=== PATIENT | male | born 1965 | race Caucasian/White ===

== ENCOUNTER → 2018-12-21 14:01 | Outpatient (CLI) | payer OTHER, SELFPAY | PROVIDERS: Visit Provider Family Medicine | DX: H91.22 Sudden idiopathic hearing loss, left ear (principal); H90.5 Unspecified sensorineural hearing loss; H81.392 Other peripheral vertigo, left ear; H93.12 Tinnitus, left ear | CPT/HCPCS: 99203; 99212 ==

== ENCOUNTER → 2018-12-27 14:57 | Outpatient (CLI) | payer OTHER, SELFPAY ==
--- NOTE | 2018-12-27 | DI.MRI.S_ITS ---
PROCEDURE: MR BRAIN (IAC) WWO CON INDICATIONS: SUDDEN ONSET HEARING LOSS TECHNIQUE: Noncontrast sagittal T1 spin echo, axial FLAIR, axial gradient echo, axial diffusion and ADC through the brain. Axial thin-slice 3D CISS, coronal TruFISP, axial T1 spin echo with fat saturation through the internal auditory canals. After the administration of contrast, thin slice axial and coronal T1 spin echo with fat saturation through the internal auditory canals, and axial T1 spin echo with fat saturation through the brain. COMPARISON: None. FINDINGS: Image quality: Excellent. Cerebellopontine angles: No cerebellopontine angle masses. Inner ear structures appear normally formed. No suspicious enhancement in the internal auditory canal or along the course of the 7th cranial nerve. CSF spaces: Ventricles are normal in size and shape. No extra-axial fluid collections. Basal cisterns are patent. Brain: No intracranial bleeds or mass effects. Cerda-white matter interface is intact. No abnormal intracranial enhancement. Diffusion weighted images demonstrate no acute ischemic insults. Brainstem appears normal. Normal intravascular flow voids are present. Skull and face: Calvarial marrow signal is normal. Orbits appear normal. Sinuses: Sinuses and mastoids are clear. IMPRESSION: No significant abnormality is seen. Specifically, no masses or abnormal enhancement are seen within the cerebellopontine angle cisterns or within the internal auditory canals. Dictated by: Vernon Brennan M.D. on 12/27/2018 at 16:00 Approved by: Vernon Brennan M.D. on 12/27/2018 at 16:01
== END ==
PROVIDERS: Visit Provider Otolaryngology
DX: H91.22 Sudden idiopathic hearing loss, left ear (principal)
CPT/HCPCS: 70553; A9579

== ENCOUNTER → 2018-12-30 15:11 | Outpatient (CLI) | payer OTHER, SELFPAY | PROVIDERS: Visit Provider Family Medicine | DX: H91.22 Sudden idiopathic hearing loss, left ear (principal) | CPT/HCPCS: 99183; G0277 ==

== ENCOUNTER → 2019-01-02 09:05 | Outpatient (CLI) | payer OTHER, SELFPAY | PROVIDERS: Visit Provider Family Medicine | DX: H91.22 Sudden idiopathic hearing loss, left ear (principal) | CPT/HCPCS: 99183; G0277 ==

== ENCOUNTER → 2019-01-03 10:21 | Outpatient (CLI) | payer OTHER, SELFPAY | PROVIDERS: Visit Provider Family Medicine | DX: H91.22 Sudden idiopathic hearing loss, left ear (principal) | CPT/HCPCS: 99183; G0277 ==

== ENCOUNTER → 2019-01-04 08:41 | Outpatient (CLI) | payer OTHER, SELFPAY | PROVIDERS: Visit Provider Family Medicine | DX: H91.22 Sudden idiopathic hearing loss, left ear (principal) | CPT/HCPCS: 99183; G0277 ==

== ENCOUNTER → 2019-01-05 08:46 | Outpatient (CLI) | payer OTHER, SELFPAY | PROVIDERS: Visit Provider Family Medicine | DX: H91.22 Sudden idiopathic hearing loss, left ear (principal) | CPT/HCPCS: 99183; G0277 ==

== ENCOUNTER → 2019-01-06 08:41 | Outpatient (CLI) | payer OTHER, SELFPAY | PROVIDERS: Visit Provider Family Medicine | DX: H91.22 Sudden idiopathic hearing loss, left ear (principal) | CPT/HCPCS: 99183; G0277 ==

== ENCOUNTER → 2019-01-09 09:31 | Outpatient (CLI) | payer OTHER, SELFPAY | PROVIDERS: Visit Provider Family Medicine | DX: H91.22 Sudden idiopathic hearing loss, left ear (principal) | CPT/HCPCS: 99183; G0277 ==

== ENCOUNTER → 2019-01-10 09:20 | Outpatient (CLI) | payer OTHER, SELFPAY | PROVIDERS: Visit Provider Family Medicine | DX: H91.22 Sudden idiopathic hearing loss, left ear (principal) | CPT/HCPCS: 99183; G0277 ==

== ENCOUNTER → 2019-01-11 09:00 | Outpatient (CLI) | payer OTHER, SELFPAY | PROVIDERS: Visit Provider Family Medicine | DX: H91.22 Sudden idiopathic hearing loss, left ear (principal) | CPT/HCPCS: 99183; G0277 ==

== ENCOUNTER → 2019-01-12 10:18 | Outpatient (CLI) | payer OTHER, SELFPAY | PROVIDERS: Visit Provider Family Medicine | DX: H91.22 Sudden idiopathic hearing loss, left ear (principal) | CPT/HCPCS: 99183; G0277 ==

== ENCOUNTER → 2019-01-13 09:09 | Outpatient (CLI) | payer OTHER, SELFPAY | PROVIDERS: Visit Provider Family Medicine | DX: H91.22 Sudden idiopathic hearing loss, left ear (principal) | CPT/HCPCS: 99183; G0277 ==

== ENCOUNTER → 2019-01-23 09:34 | Outpatient (CLI) | payer OTHER, SELFPAY | PROVIDERS: Visit Provider Family Medicine | DX: H91.22 Sudden idiopathic hearing loss, left ear (principal) | CPT/HCPCS: 99183; G0277 ==

== ENCOUNTER → 2019-01-24 08:58 | Outpatient (CLI) | payer OTHER, SELFPAY | PROVIDERS: Visit Provider Family Medicine | DX: H91.22 Sudden idiopathic hearing loss, left ear (principal) | CPT/HCPCS: 99183; G0277 ==

== ENCOUNTER → 2019-01-25 09:54 | Outpatient (CLI) | payer OTHER, SELFPAY | PROVIDERS: Visit Provider Family Medicine | DX: H91.22 Sudden idiopathic hearing loss, left ear (principal) | CPT/HCPCS: 99183; G0277 ==

== ENCOUNTER → 2019-01-26 11:03 | Outpatient (CLI) | payer OTHER, SELFPAY | PROVIDERS: Visit Provider Family Medicine | DX: H91.22 Sudden idiopathic hearing loss, left ear (principal) | CPT/HCPCS: 99183; G0277 ==

== ENCOUNTER → 2019-01-27 08:24 | Outpatient (CLI) | payer OTHER, SELFPAY | PROVIDERS: Visit Provider Family Medicine | DX: H91.22 Sudden idiopathic hearing loss, left ear (principal) | CPT/HCPCS: 99183; 99214; G0277 ==

== ENCOUNTER → 2019-01-30 09:28 | Outpatient (CLI) | payer OTHER, SELFPAY | PROVIDERS: Visit Provider Family Medicine | DX: H91.22 Sudden idiopathic hearing loss, left ear (principal) | CPT/HCPCS: 99183; G0277 ==

== ENCOUNTER → 2019-01-31 09:53 | Outpatient (CLI) | payer OTHER, SELFPAY | PROVIDERS: Visit Provider Family Medicine | DX: H91.22 Sudden idiopathic hearing loss, left ear (principal) | CPT/HCPCS: 99183; G0277 ==

== ENCOUNTER → 2019-02-01 08:55 | Outpatient (CLI) | payer OTHER, SELFPAY | PROVIDERS: Visit Provider Family Medicine | DX: H91.22 Sudden idiopathic hearing loss, left ear (principal) | CPT/HCPCS: 99183; G0277 ==

== ENCOUNTER → 2019-02-02 09:43 | Outpatient (CLI) | payer OTHER, SELFPAY | PROVIDERS: Visit Provider Family Medicine | DX: H91.22 Sudden idiopathic hearing loss, left ear (principal) | CPT/HCPCS: 99183; G0277 ==

== ENCOUNTER → 2019-02-03 13:54 | Outpatient (CLI) | payer OTHER, SELFPAY | PROVIDERS: Visit Provider Family Medicine | DX: H91.22 Sudden idiopathic hearing loss, left ear (principal) | CPT/HCPCS: 99183; G0277 ==

== ENCOUNTER → 2019-02-06 08:39 | Outpatient (CLI) | payer OTHER, SELFPAY | PROVIDERS: Visit Provider Family Medicine | DX: H91.22 Sudden idiopathic hearing loss, left ear (principal) | CPT/HCPCS: 99183; G0277 ==

== ENCOUNTER → 2019-02-07 08:35 | Outpatient (CLI) | payer OTHER, SELFPAY | PROVIDERS: Visit Provider Family Medicine | DX: H91.22 Sudden idiopathic hearing loss, left ear (principal) | CPT/HCPCS: 99183; G0277 ==

== ENCOUNTER → 2019-02-08 11:16 | Outpatient (CLI) | payer OTHER, SELFPAY | PROVIDERS: Visit Provider Family Medicine | DX: H91.22 Sudden idiopathic hearing loss, left ear (principal) | CPT/HCPCS: 99183; G0277 ==

== ENCOUNTER → 2019-02-09 10:05 | Outpatient (CLI) | payer OTHER, SELFPAY | PROVIDERS: Visit Provider Family Medicine | DX: H91.22 Sudden idiopathic hearing loss, left ear (principal) | CPT/HCPCS: 99183; G0277 ==

== ENCOUNTER → 2019-02-10 08:55 | Outpatient (CLI) | payer OTHER, SELFPAY | PROVIDERS: Visit Provider Family Medicine | DX: H91.22 Sudden idiopathic hearing loss, left ear (principal) | CPT/HCPCS: 99183; G0277 ==

== ENCOUNTER → 2019-02-13 09:49 | Outpatient (CLI) | payer OTHER, SELFPAY | PROVIDERS: Visit Provider Family Medicine | DX: H91.22 Sudden idiopathic hearing loss, left ear (principal) | CPT/HCPCS: 99183; G0277 ==

== ENCOUNTER → 2019-02-14 08:32 | Outpatient (CLI) | payer OTHER, SELFPAY | PROVIDERS: Visit Provider Family Medicine | DX: H91.22 Sudden idiopathic hearing loss, left ear (principal) | CPT/HCPCS: 99183; G0277 ==

== ENCOUNTER → 2019-02-15 09:57 | Outpatient (CLI) | payer OTHER, SELFPAY | PROVIDERS: Visit Provider Family Medicine | DX: H91.22 Sudden idiopathic hearing loss, left ear (principal) | CPT/HCPCS: 99183; G0277 ==

== ENCOUNTER → 2019-02-17 10:54 | Outpatient (CLI) | payer OTHER, SELFPAY | PROVIDERS: Visit Provider Family Medicine | DX: H91.22 Sudden idiopathic hearing loss, left ear (principal) | CPT/HCPCS: 99183; G0277 ==

== ENCOUNTER 2020-02-24 12:21 | Inpatient (IN) | payer OTHER, SELFPAY ==
[2020-02-24] VITALS (8 sets, daily range): BP systolic 118–144; BP diastolic 73–89; PULSE 68–104; RESP 15–18; TEMP 36.4–36.6; O2SAT 94–100; BMI 29.8
--- NOTE | 2020-02-24 12:51 | PC.NURSE ---
Patient reports symptoms began Wednesday evening with discomfort during urination. Patient reports nausea, vomiting, and diarrhea. Diarrhea has since ceased and now patient reports constipation since Wednesday, with continued nausea and vomiting. Reports pain 7/10, generalized across entire abdomen, and chronic aching that increased with movement. Denies chest pain and SOB.
--- NOTE | 2020-02-24 12:52 | DI.CT.S_ITS ---
PROCEDURE: CT ABDOMEN PELVIS W CON INDICATIONS: mid lower abd px, vomiting x 6 days TECHNIQUE: After the administration of intravenous contrast, 5 mm thick sections acquired from the diaphragm to the symphysis. 5 mm coronal and sagittal reformats were acquired. For radiation dose reduction, the following was used: automated exposure control, adjustment of mA and/or kV according to patient size. COMPARISON: None. FINDINGS: Image quality: Excellent. ABDOMEN: Lung bases: Lung bases are clear. Heart size is normal. Solid organs: Liver is normal in size and enhancement. Gallbladder is normal . Biliary system is non dilated. Pancreas enhances normally. Spleen is normal in size and enhancement. No adrenal nodules. Kidneys demonstrate normal size and enhancement, without hydronephrosis. Peritoneum and bowel: There is a bowel obstruction with prominent dilatation of multiple small bowel loops containing air-fluid levels. There is a transition point in the right lower quadrant. The appendix is not identified and this transition point may include acute appendicitis. There are few loops of small bowel in this area which are decompressed demonstrating wall thickening. There are also numerous diverticula of the sigmoid colon which are adjacent to this area, but do not appear discretely involved. The stomach is air and fluid-filled and moderately distended. There is a small amount of free fluid dependently in the pelvis. No free intraperitoneal air. Nodes and vessels: No retroperitoneal or mesenteric adenopathy by size criteria. Aorta and inferior vena cava are normal in size. Miscellaneous: No ventral hernias. PELVIS: Genitourinary: Bladder wall thickness is normal. Miscellaneous: No inguinal hernias or adenopathy. Bones: No suspicious bony lesions. Degenerative disc and endplate changes at L4-5 and L5-S1. No vertebral body compression fractures. IMPRESSION: 1. Acute small bowel obstruction with a transition point in the right lower quadrant. Etiology may be adhesion, potentially acute appendicitis. NG tube decompression and surgical consult recommended. 2. There is sigmoid diverticulosis without acute diverticulitis. Dictated by: Marisa Julien M.D. on 02/24/2020 at 13:03 Approved by: Marisa Julien M.D. on 02/24/2020 at 13:08
--- NOTE | 2020-02-24 12:54 | DI.RAD.S_ITS ---
PROCEDURE: XR CHEST 1V INDICATIONS: epigastric px TECHNIQUE: One view of the chest was acquired. COMPARISON: None. FINDINGS: Surgical changes and devices: None. Lungs and pleura: Lungs are clear. No pleural effusions or pneumothorax. Mediastinum: Mediastinal contours appear normal. Heart size is normal. Bones and chest wall: No suspicious bony lesions. Overlying soft tissues appear unremarkable. IMPRESSION: No acute cardiopulmonary disease. Dictated by: Marisa Julien M.D. on 02/24/2020 at 12:16 Approved by: Marisa Julien M.D. on 02/24/2020 at 12:16
[2020-02-24 13:00] LABS: Add Manual Diff / Slide Review NO; Basophils Absolute Auto 0 /uL (0-100); Basophils Percent Auto 0.3 % (0-2); Eosinophils Absolute Auto 0 /uL (0-450); Eosinophils Percent Auto 0.1 % (2-4); Hematocrit 46.3 % (41-53); Hemoglobin 15.9 g/dL (13.5-17.5); Lymphocytes Absolute Auto 1100 /uL (1100-4500); Lymphocytes Percent Auto 9.8 % (25-40); Mean Corpuscular HGB Conc 34.3 % (30-36); Mean Corpuscular Hemoglobin 28.2 PG (26-34); Mean Corpuscular Volume 82.3 fL (80-100); Monocytes Absolute Auto 1200 /uL (0-900); Monocytes Percent Auto 10.6 % (3-14); Neutrophils Absolute Auto 9200 /uL (1500-7000); Neutrophils Percent Auto 79.2 % (50-75); Platelet Count 421 X10^3/uL (150-400); Red Blood Cell Count 5.63 X10^6/uL (4.5-5.9); Red Cell Distribution Width 13.3 % (11.6-14.8); White Blood Cell Count 11.6 X10^3/uL (4.5-11.0)
[2020-02-24 13:10] LABS: Creatine Kinase 131 U/L (55-170)
[2020-02-24 13:12] LABS: Alanine Aminotransferase 53 IU/L (<50); Albumin 4.8 g/dL (3.5-5.0); Albumin Globulin Ratio 1.2 (1.0-2.8); Alkaline Phosphatase 82 U/L (38-126); Aspartate Aminotransferase 44 IU/L (17-59); BUN Creatinine Ratio 24.6 (6-22); Blood Urea Nitrogen 29 mg/dL (9-20); Calcium 10.2 mg/dL (8.4-10.2); Carbon Dioxide 22 mmol/L (22-32); Chloride 95 mmol/L (98-107); Estimated Glomerular Filt Rate > 60.0 mL/min (>60); Globulin 4.1 g/dL (1.7-4.1); Glucose 134 mg/dL (70-100); HEMOLYSIS < 15 (0-50); Lipase 83 U/L (23-300); Potassium 3.7 mmol/L (3.4-5.1); Sodium 133 mmol/L (137-145); Total Protein 8.9 g/dL (6.3-8.2)
[2020-02-24 13:23] LABS: Troponin I < 0.012 ng/mL (0.01-0.034)
[2020-02-24 13:25] LABS: CKMB % Relative Index 1.2 % (1.5-5.0); Creatine Kinase MB 1.58 ng/mL (<2.37)
[2020-02-24] MEDS: SODIUM CHLORIDE 0.9% 1,000 ML 1000 ML IV (13:30)
[2020-02-24] MEDS: ONDANSETRON 4 MG/2 ML INJ IV (13:31)
[2020-02-24 13:33] LABS: Bacteria Urine None Seen
[2020-02-24 13:47] LABS: Culture Indicated Urine Cult Not Indicated; Hyaline Casts Urine 1-5/LPF; Mucus Urine 1+ (Negative); RBC Urine 0-1/HPF (0-5/HPF); Squamous Epithelial Cell Urine 0-1 /HPF (0-5/HPF); WBC Urine 0-1/HPF (0-5/HPF)
--- NOTE | 2020-02-24 13:53 | ED_ITS ---
HPI - Abdominal Pain <ADAN Pedraza - Last Filed: 02/24/20 16:43> General Chief Complaint: Abdominal Pain Stated Complaint: Feeling sick/ nausea/ vomitting Time Seen by Provider: 02/24/20 12:42 Source: patient Mode of arrival: Ambulatory Limitations: no limitations History of Present Illness HPI narrative: 54-year-old healthy male presents to the emergency department for abdominal pain, vomiting, and episode of diarrhea. Patient reports approximately 6 days ago and Wednesday he felt constipated with stomach cramps and had an episode of vomiting. He has continued to feel nauseated and vomits every time he tries to eat things. He had an episode of diarrhea on Wednesday, has not have a a bowel movement since Wednesday. Patient states he tried to eat a protein shake and right yesterday but continued to vomit as soon as he ate food. Patient denies any significant history, denies abdominal surgeries, denies taking any medications. Patient denies fever but states that he has woken up with the sweats but thinks that this is related to nausea vomiting. Patient denies cough, shortness of breath, rhinorrhea, dizziness, syncope, or other injuries. Related Data Allergies Allergy/AdvReac Type Severity Reaction Status Date / Time acetaminophen [From Vicodin] Allergy Severe hives on Verified 02/24/20 12:28 face hydrocodone [From Vicodin] Allergy Severe hives on Verified 02/24/20 12:28 face Review of Systems <ADAN Pedraza - Last Filed: 02/24/20 16:43> Review of Systems Narrative: REVIEW OF SYSTEMS: GENERAL: Denies fever. HENT: No head trauma. . EYES: No vision changes. CARDIOVASCULAR: No chest pain. RESPIRATORY: No shortness of breath or cough. GASTROINTESTINAL: Complains of abdominal pain nausea, and vomiting,, see HPI GENITOURINARY: No flank pain, urinary incontinence, hesitancy, frequency, or dysuria. MUSCULOSKELETAL: No pain, weakness, or trauma. INTEGUMENTARY: No rash, lesions, or pruritus. NEURO: No numbness or tingling. PSYCH: No behavior or mood changes. Patient History <ADAN Pedraza - Last Filed: 02/24/20 16:43> Medical History No significant medical problems (Acute) Social History household members: none Smoking Status: Former smoker Smoking Status: Former smoker alcohol intake frequency: holidays/special occasions only Substance Use Type: does not use Exam <ADAN Pedraza - Last Filed: 02/24/20 16:43> Initial Vital Signs Initial Vital Signs: Vital Signs Temperature 97.9 F 02/24/20 12:28 Pulse Rate 104 H 02/24/20 12:28 Respiratory Rate 17 02/24/20 12:28 Blood Pressure 133/89 02/24/20 12:28 Pulse Oximetry 98 02/24/20 12:28 PHYSICAL EXAMINATION: GENERAL: Well groomed, alert, and cooperative. Answers questions promptly and appropriately. Vital signs noted. HENT: Normocephalic, atraumatic. Hearing intact. Oral mucosa is pink and moist. EYES: Conjunctiva pink, sclera white, no periorbital swelling. CARDIOVASCULAR: S1 and S2 sounds normal. Regular rate and rhythm, no murmurs, clicks, or bruits. No pedal edema. RESPIRATORY: Normal respiratory rate, trachea midline, airway patent. No stridor, nasal flaring or accessory muscle use. Lungs are clear in all nelson without wheeze, rhonchi, or crackles. GASTROINTESTINAL: Bowel sounds normoactive. Diffuse tenderness, tenderness increased in lower mid abdominal area. GENITALURINARY: No flank tenderness. MUSCULOSKELETAL: Normal gait and coordination. Equal tone and mass bilaterally. EXTREMITIES: CMS intact, no pedal edema. SKIN: Warm, dry, soft, appropriate color for ethnicity. No lesions, rashes, or wounds to visualized areas. NEURO: Alert and Oriented X 3. Good coordination. No ataxia, or sensory deficits, or cognitive issues. PSYCH: Appropriate affect and mood. <Kit Begum MD - Last Filed: 02/24/20 17:19> Initial Vital Signs Initial Vital Signs: Vital Signs Temperature 97.9 F 02/24/20 12:28 Pulse Rate 104 H 02/24/20 12:28 Respiratory Rate 17 02/24/20 12:28 Blood Pressure 133/89 02/24/20 12:28 Pulse Oximetry 98 02/24/20 12:28 Course <ADAN Pedraza - Last Filed: 02/24/20 16:43> Course Course Narrative: 1300: Patient given IV fluids and ondansetron. 1400: I spoke with patient about probable admission. 1530: I spoke with Dr. Blake from general surgery who accepts for admission. Orders Ordered: ED Orders 02/24/20 12:33 EKG-12 Lead Stat 02/24/20 12:48 Complete Blood Count AUTO DIFF Stat Comprehensive Metabolic Panel Stat Lipase Stat Troponin & CK Cardiac Panel Stat Urine Microscopic Stat 02/24/20 12:52 CT abdomen pelvis w con Stat 02/24/20 12:54 XR chest 1V Stat 02/24/20 13:40 Partial Thromboplastin Time Stat Prothrombin Time INR Stat 02/24/20 15:36 Chest [XR chest 1V] Stat Hydromorphone HCl (Dilaudid) 0.5 mg IV Q6HR PRN PRN Reason: Pain, Moderate (4-6) Sodium Chloride (Normal Saline 0.9%) 1,000 mls @ 100 mls/hr IV CONT LYNDA Naloxone HCl (Narcan) 0.2 mg IV Q2MIN PRN PRN Reason: Opiate Reversal Ondansetron HCl (Zofran) 4 mg IV Q8HR PRN PRN Reason: Nausea And Vomiting Discontinued Medications Sodium Chloride (Normal Saline 0.9%) 1,000 mls @ 1,000 mls/hr IV BOLUS ONE Stop: 02/24/20 13:51 Last Infusion: 02/24/20 15:17 Dose: 0 mls/hr Documented by: Admin: 02/24/20 13:30 Dose: 1,000 mls/hr Documented by: VILLA Ketorolac Tromethamine (Toradol) 30 mg IV NOW ONE Stop: 02/24/20 15:20 Last Admin: 02/24/20 15:21 Dose: 30 mg Documented by: VILLA Ondansetron HCl (Zofran) 4 mg IV NOW ONE Stop: 02/24/20 12:53 Last Admin: 02/24/20 13:31 Dose: 4 mg Documented by: VILLA Vital Signs Vital signs: Vital Signs - 8 hr 02/24/20 12:28 02/24/20 13:00 02/24/20 14:12 Temperature 97.9 F Pulse Rate 104 H 72 72 Respiratory Rate 17 15 Blood Pressure 133/89 144/83 H Pulse Oximetry 98 100 100 02/24/20 14:30 02/24/20 15:00 Temperature Pulse Rate 69 68 Respiratory Rate Blood Pressure Pulse Oximetry 99 100 <Kit Begum MD - Last Filed: 02/24/20 17:19> Orders Ordered: ED Orders 02/24/20 12:33 EKG-12 Lead Stat 02/24/20 12:48 Complete Blood Count AUTO DIFF Stat Comprehensive Metabolic Panel Stat Lipase Stat Troponin & CK Cardiac Panel Stat Urine Microscopic Stat 02/24/20 12:52 CT abdomen pelvis w con Stat 02/24/20 12:54 XR chest 1V Stat 02/24/20 13:40 Partial Thromboplastin Time Stat Prothrombin Time INR Stat 02/24/20 15:36 Chest [XR chest 1V] Stat Hydromorphone HCl (Dilaudid) 0.5 mg IV Q6HR PRN PRN Reason: Pain, Moderate (4-6) Sodium Chloride (Normal Saline 0.9%) 1,000 mls @ 100 mls/hr IV CONT LYNDA Naloxone HCl (Narcan) 0.2 mg IV Q2MIN PRN PRN Reason: Opiate Reversal Ondansetron HCl (Zofran) 4 mg IV Q8HR PRN PRN Reason: Nausea And Vomiting Discontinued Medications Sodium Chloride (Normal Saline 0.9%) 1,000 mls @ 1,000 mls/hr IV BOLUS ONE Stop: 02/24/20 13:51 Last Infusion: 02/24/20 15:17 Dose: 0 mls/hr Documented by: Admin: 02/24/20 13:30 Dose: 1,000 mls/hr Documented by: VILLA Ketorolac Tromethamine (Toradol) 30 mg IV NOW ONE Stop: 02/24/20 15:20 Last Admin: 02/24/20 15:21 Dose: 30 mg Documented by: VILLA Ondansetron HCl (Zofran) 4 mg IV NOW ONE Stop: 02/24/20 12:53 Last Admin: 02/24/20 13:31 Dose: 4 mg Documented by: VILLA Vital Signs Vital signs: Vital Signs - 8 hr 02/24/20 12:28 02/24/20 13:00 02/24/20 14:12 Temperature 97.9 F Pulse Rate 104 H 72 72 Respiratory Rate 17 15 Blood Pressure 133/89 144/83 H Pulse Oximetry 98 100 100 02/24/20 14:30 02/24/20 15:00 Temperature Pulse Rate 69 68 Respiratory Rate Blood Pressure Pulse Oximetry 99 100 MDM - Abdominal Pain <ADAN Pedraza - Last Filed: 02/24/20 16:43> Medical Records Attestation: I reviewed the patient's medical records. Lab Data Attestation: I reviewed the patient's lab results. Result diagrams: 02/24/20 12:48 02/24/20 12:48 Labs: Lab Results 02/24/20 02/24/20 02/24/20 Range/Units 12:48 12:48 12:48 WBC 11.6 H (4.5-11.0) X10^3/uL RBC 5.63 (4.5-5.9) X10^6/uL Hgb 15.9 (13.5-17.5) g/dL Hct 46.3 (41-53) % MCV 82.3 (80-100) fL MCH 28.2 (26-34) PG MCHC 34.3 (30-36) % RDW 13.3 (11.6-14.8) % Plt Count 421 H (150-400) X10^3/uL Neut % (Auto) 79.2 H (50-75) % Lymph % (Auto) 9.8 L (25-40) % [place] % (Auto) 10.6 (3-14) % Eos % (Auto) 0.1 L (2-4) % Baso % (Auto) 0.3 (0-2) % Neut # (Auto) 9200 H (6961-0389) /uL Lymph # (Auto) 1100 (7778-5032) /uL [place] # (Auto) 1200 H (0-900) /uL Eos # (Auto) 0 (0-450) /uL Baso # (Auto) 0 (0-100) /uL PT (10.1-12.7) SECONDS INR (0.9-1.3) APTT (26.4-36.2) SECONDS Sodium 133 L (137-145) mmol/L Potassium 3.7 (3.4-5.1) mmol/L Chloride 95 L (98-107) mmol/L Carbon Dioxide 22 (22-32) mmol/L BUN 29 H (9-20) mg/dL Creatinine 1.18 (0.66-1.25) mg/dL Estimated GFR > 60.0 (>60) mL/min BUN/Creatinine Ratio 24.6 H (6-22) Glucose 134 H (70-100) mg/dL Calcium 10.2 (8.4-10.2) mg/dL Total Bilirubin 1.0 (0.2-1.3) mg/dL AST 44 (17-59) IU/L ALT 53 H (<50) IU/L Alkaline Phosphatase 82 (38-126) U/L Total Creatine Kinase 131 (55-170) U/L CK-MB (CK-2) 1.58 (<2.37) ng/mL CK-MB (CK-2) Rel Index 1.2 L (1.5-5.0) % Troponin I < 0.012 (0.01-0.034) ng/mL Total Protein 8.9 H (6.3-8.2) g/dL Albumin 4.8 (3.5-5.0) g/dL Globulin 4.1 (1.7-4.1) g/dL Albumin/Globulin Ratio 1.2 (1.0-2.8) Lipase 83 (23-300) U/L Urine RBC (0-5/HPF) Urine WBC (0-5/HPF) Ur Squamous Epith Cells (0-5/HPF) Urine Bacteria (None) Hyaline Casts (None) Urine Mucus (Negative) Ur Culture Indicated? 02/24/20 02/24/20 Range/Units 12:48 13:40 WBC (4.5-11.0) X10^3/uL RBC (4.5-5.9) X10^6/uL Hgb (13.5-17.5) g/dL Hct (41-53) % MCV (80-100) fL MCH (26-34) PG MCHC (30-36) % RDW (11.6-14.8) % Plt Count (150-400) X10^3/uL Neut % (Auto) (50-75) % Lymph % (Auto) (25-40) % [place] % (Auto) (3-14) % Eos % (Auto) (2-4) % Baso % (Auto) (0-2) % Neut # (Auto) (1237-5156) /uL Lymph # (Auto) (2582-7947) /uL [place] # (Auto) (0-900) /uL Eos # (Auto) (0-450) /uL Baso # (Auto) (0-100) /uL PT 13.9 H (10.1-12.7) SECONDS INR 1.2 (0.9-1.3) APTT 29 (26.4-36.2) SECONDS Sodium (137-145) mmol/L Potassium (3.4-5.1) mmol/L Chloride (98-107) mmol/L Carbon Dioxide (22-32) mmol/L BUN (9-20) mg/dL Creatinine (0.66-1.25) mg/dL Estimated GFR (>60) mL/min BUN/Creatinine Ratio (6-22) Glucose (70-100) mg/dL Calcium (8.4-10.2) mg/dL Total Bilirubin (0.2-1.3) mg/dL AST (17-59) IU/L ALT (<50) IU/L Alkaline Phosphatase (38-126) U/L Total Creatine Kinase (55-170) U/L CK-MB (CK-2) (<2.37) ng/mL CK-MB (CK-2) Rel Index (1.5-5.0) % Troponin I (0.01-0.034) ng/mL Total Protein (6.3-8.2) g/dL Albumin (3.5-5.0) g/dL Globulin (1.7-4.1) g/dL Albumin/Globulin Ratio (1.0-2.8) Lipase (23-300) U/L Urine RBC 0-1/hpf (0-5/HPF) Urine WBC 0-1/hpf (0-5/HPF) Ur Squamous Epith Cells 0-1 /hpf (0-5/HPF) Urine Bacteria None seen (None) Hyaline Casts 1-5/lpf (None) Urine Mucus 1+ H (Negative) Ur Culture Indicated? Cult not indicated Point of care testing: Urine Dip Bedside Urine Glucose Negative Bedside Urine Bilirubin + 1 Bedside Urine Ketone + 15 Urine Specific [place] 1.025 Bedside Urine Occult Blood - Negative Bedside Urine pH 6.0 Bedside Urine Protein + 30 Bedside Urine Urobilinogen - Negative Bedside Urine Nitrite - Negative Bedside Urine Leukocytes - Negative Esterase Imaging Data Chest x-ray: Radiologist's Impression: [address] [address] XRay Report Signed Patient: Augusto Harvey [facility]#: [id number] : 1965Acct:[id number] Age/Sex: 54 / MDate of Service: 02/24/20 Loc: ED Accession Number: [id number] Procedure: XR chest 1V Ordering Provider: Jossie Hankins PROCEDURE: XR CHEST 1V INDICATIONS: epigastric px TECHNIQUE: One view of the chest was acquired. COMPARISON: None. FINDINGS: Surgical changes and devices: None. Lungs and pleura: Lungs are clear. No pleural effusions or pneumothorax. Mediastinum: Mediastinal contours appear normal. Heart size is normal. Bones and chest wall: No suspicious bony lesions. Overlying soft tissues appear unremarkable. IMPRESSION: No acute cardiopulmonary disease. Dictated by: Marisa Julien M.D. on 02/24/2020 at 12:16 Approved by: Marisa Julien M.D. on 02/24/2020 at 12:16 CT scan - abdomen/pelvis: Radiologist's Impression: [address] [address] [address] Scan Report Signed Patient: Augusto Harvey [facility]#: [id number] : 1965Acct:[id number] Age/Sex: 54 / MDate of Service: 02/24/20 Loc: ED Accession Number: [id number] Procedure: CT abdomen pelvis w con Ordering Provider: Jossie Hankins PROCEDURE: CT ABDOMEN PELVIS W CON INDICATIONS: mid lower abd px, vomiting x 6 days TECHNIQUE: After the administration of intravenous contrast, 5 mm thick sections acquired from the diaphragm to the symphysis. 5 mm coronal and sagittal reformats were acquired. For radiation dose reduction, the following was used: automated exposure control, adjustment of mA and/or kV according to patient size. COMPARISON: None. FINDINGS: Image quality: Excellent. ABDOMEN: Lung bases: Lung bases are clear. Heart size is normal. Solid organs: Liver is normal in size and enhancement. Gallbladder is normal . Biliary system is non dilated. Pancreas enhances normally. Spleen is normal in size and enhancement. No adrenal nodules. Kidneys demonstrate normal size and enhancement, without hydronephrosis. Peritoneum and bowel: There is a bowel obstruction with prominent dilatation of multiple small bowel loops containing air-fluid levels. There is a transition point in the right lower quadrant. The appendix is not identified and this transition point may include acute appendicitis. There are few loops of small bowel in this area which are decompressed demonstrating wall thickening. There are also numerous diverticula of the sigmoid colon which are adjacent to this area, but do not appear discretely involved. The stomach is air and fluid-filled and moderately distended. There is a small amount of free fluid dependently in the pelvis. No free intraperitoneal air. Nodes and vessels: No retroperitoneal or mesenteric adenopathy by size criteria. Aorta and inferior vena cava are normal in size. Miscellaneous: No ventral hernias. PELVIS: Genitourinary: Bladder wall thickness is normal. Miscellaneous: No inguinal hernias or adenopathy. Bones: No suspicious bony lesions. Degenerative disc and endplate changes at L4-5 and L5-S1. No vertebral body compression fractures. IMPRESSION: 1. Acute small bowel obstruction with a transition point in the right lower quadrant. Etiology may be adhesion, potentially acute appendicitis. NG tube decompression and surgical consult recommended. 2. There is sigmoid diverticulosis without acute diverticulitis. Dictated by: Marisa Julien M.D. on 02/24/2020 at 13:03 Approved by: Marisa Julien M.D. on 02/24/2020 at 13:08 Chest Xray # 2: Radiologist's Impression: [address] [address] XRay Report Signed Patient: Augusto Harvey [facility]#: [id number] : 1965Acct:[id number] Age/Sex: 54 / MDate of Service: 02/24/20 Loc: GE32G-3 Accession Number: [id number] Procedure: XR chest 1V Ordering Provider: Jossie Hankins PROCEDURE: XR CHEST 1V INDICATIONS: Check NG tube placement TECHNIQUE: One view of the chest was acquired. COMPARISON: [facility], , XR CHEST 1V, 02/24/2020, 12:58. FINDINGS: Surgical changes and devices: There is an NG tube present, however the tip is probably just at the GE junction. The tube should be inserted at least 10 more cm for optimal gastric placement. Lungs and pleura: Lungs are clear. No pleural effusions or pneumothorax. Mediastinum: Mediastinal contours appear normal. Heart size is normal. Bones and chest wall: No suspicious bony lesions. Overlying soft tissues appear unremarkable. IMPRESSION: 1. NG tube should be inserted at least 10 more cm for optimal gastric placement. Dictated by: Marisa Julien M.D. on 02/24/2020 at 15:16 Approved by: Marisa Julien M.D. on 02/24/2020 at 15:17 ECG Data Interpretation: 1241: Sinus rhythm, rate 97, WA interval 120, QTC 390. No ST elevation or ST depression. No T-wave abnormality. EKG also viewed by Dr. Begum per protocol. [facility] Narrative Medical decision making narrative: 54-year-old male with a fairly healthy history, presents emergency department for approximately 6 days of nausea and vomiting with [address] scan ordered given continued vomiting and significant diffuse pain on palpation of abdomen. CT shows bowel obstruction possibly related to adhesions acute appendicitis. Less likely acute appendicitis given white count of 11 and no significant right lower quadrant tenderness. Patient is hemodynamically stable, nonseptic. NG tube inserted. Patient was admitted to Dr. Blake for further evaluation and treatment. Patient consented to admission. <Kit Begum MD - Last Filed: 02/24/20 17:19> Lab Data Labs: Lab Results 02/24/20 02/24/20 02/24/20 Range/Units 12:48 12:48 12:48 WBC 11.6 H (4.5-11.0) X10^3/uL RBC 5.63 (4.5-5.9) X10^6/uL Hgb 15.9 (13.5-17.5) g/dL Hct 46.3 (41-53) % MCV 82.3 (80-100) fL MCH 28.2 (26-34) PG MCHC 34.3 (30-36) % RDW 13.3 (11.6-14.8) % Plt Count 421 H (150-400) X10^3/uL Neut % (Auto) 79.2 H (50-75) % Lymph % (Auto) 9.8 L (25-40) % [place] % (Auto) 10.6 (3-14) % Eos % (Auto) 0.1 L (2-4) % Baso % (Auto) 0.3 (0-2) % Neut # (Auto) 9200 H (4640-8192) /uL Lymph # (Auto) 1100 (4143-9596) /uL [place] # (Auto) 1200 H (0-900) /uL Eos # (Auto) 0 (0-450) /uL Baso # (Auto) 0 (0-100) /uL PT (10.1-12.7) SECONDS INR (0.9-1.3) APTT (26.4-36.2) SECONDS Sodium 133 L (137-145) mmol/L Potassium 3.7 (3.4-5.1) mmol/L Chloride 95 L (98-107) mmol/L Carbon Dioxide 22 (22-32) mmol/L BUN 29 H (9-20) mg/dL Creatinine 1.18 (0.66-1.25) mg/dL Estimated GFR > 60.0 (>60) mL/min BUN/Creatinine Ratio 24.6 H (6-22) Glucose 134 H (70-100) mg/dL Calcium 10.2 (8.4-10.2) mg/dL Total Bilirubin 1.0 (0.2-1.3) mg/dL AST 44 (17-59) IU/L ALT 53 H (<50) IU/L Alkaline Phosphatase 82 (38-126) U/L Total Creatine Kinase 131 (55-170) U/L CK-MB (CK-2) 1.58 (<2.37) ng/mL CK-MB (CK-2) Rel Index 1.2 L (1.5-5.0) % Troponin I < 0.012 (0.01-0.034) ng/mL Total Protein 8.9 H (6.3-8.2) g/dL Albumin 4.8 (3.5-5.0) g/dL Globulin 4.1 (1.7-4.1) g/dL Albumin/Globulin Ratio 1.2 (1.0-2.8) Lipase 83 (23-300) U/L Urine RBC (0-5/HPF) Urine WBC (0-5/HPF) Ur Squamous Epith Cells (0-5/HPF) Urine Bacteria (None) Hyaline Casts (None) Urine Mucus (Negative) Ur Culture Indicated? 02/24/20 02/24/20 Range/Units 12:48 13:40 WBC (4.5-11.0) X10^3/uL RBC (4.5-5.9) X10^6/uL Hgb (13.5-17.5) g/dL Hct (41-53) % MCV (80-100) fL MCH (26-34) PG MCHC (30-36) % RDW (11.6-14.8) % Plt Count (150-400) X10^3/uL Neut % (Auto) (50-75) % Lymph % (Auto) (25-40) % [place] % (Auto) (3-14) % Eos % (Auto) (2-4) % Baso % (Auto) (0-2) % Neut # (Auto) (6406-1616) /uL Lymph # (Auto) (5942-1370) /uL [place] # (Auto) (0-900) /uL Eos # (Auto) (0-450) /uL Baso # (Auto) (0-100) /uL PT 13.9 H (10.1-12.7) SECONDS INR 1.2 (0.9-1.3) APTT 29 (26.4-36.2) SECONDS Sodium (137-145) mmol/L Potassium (3.4-5.1) mmol/L Chloride (98-107) mmol/L Carbon Dioxide (22-32) mmol/L BUN (9-20) mg/dL Creatinine (0.66-1.25) mg/dL Estimated GFR (>60) mL/min BUN/Creatinine Ratio (6-22) Glucose (70-100) mg/dL Calcium (8.4-10.2) mg/dL Total Bilirubin (0.2-1.3) mg/dL AST (17-59) IU/L ALT (<50) IU/L Alkaline Phosphatase (38-126) U/L Total Creatine Kinase (55-170) U/L CK-MB (CK-2) (<2.37) ng/mL CK-MB (CK-2) Rel Index (1.5-5.0) % Troponin I (0.01-0.034) ng/mL Total Protein (6.3-8.2) g/dL Albumin (3.5-5.0) g/dL Globulin (1.7-4.1) g/dL Albumin/Globulin Ratio (1.0-2.8) Lipase (23-300) U/L Urine RBC 0-1/hpf (0-5/HPF) Urine WBC 0-1/hpf (0-5/HPF) Ur Squamous Epith Cells 0-1 /hpf (0-5/HPF) Urine Bacteria None seen (None) Hyaline Casts 1-5/lpf (None) Urine Mucus 1+ H (Negative) Ur Culture Indicated? Cult not indicated Point of care testing: Urine Dip Bedside Urine Glucose Negative Bedside Urine Bilirubin + 1 Bedside Urine Ketone + 15 Urine Specific [place] 1.025 Bedside Urine Occult Blood - Negative Bedside Urine pH 6.0 Bedside Urine Protein + 30 Bedside Urine Urobilinogen - Negative Bedside Urine Nitrite - Negative Bedside Urine Leukocytes - Negative Esterase Discharge Plan Departure Patient Disposition: Admitted as Observation Clinical Impression: SBO (small bowel obstruction) Discharge Date/Time: 02/24/20 16:49 Admit Date/Time: 02/24/20 15:38 Admit Provider: Pancho Blake
[2020-02-24 13:55] LABS: INR 1.2 (0.9-1.3); Prothrombin Time 13.9 SECONDS (10.1-12.7)
[2020-02-24 13:58] LABS: PTT Partial Thromboplastin Tim 29 SECONDS (26.4-36.2)
[2020-02-24] MEDS: KETOROLAC 60 MG/2 ML VIAL 30 MG IV (15:21)
--- NOTE | 2020-02-24 15:36 | DI.RAD.S_ITS ---
PROCEDURE: XR CHEST 1V INDICATIONS: Check NG tube placement TECHNIQUE: One view of the chest was acquired. COMPARISON: [facility], , XR CHEST 1V, 02/24/2020, 12:58. FINDINGS: Surgical changes and devices: There is an NG tube present, however the tip is probably just at the GE junction. The tube should be inserted at least 10 more cm for optimal gastric placement. Lungs and pleura: Lungs are clear. No pleural effusions or pneumothorax. Mediastinum: Mediastinal contours appear normal. Heart size is normal. Bones and chest wall: No suspicious bony lesions. Overlying soft tissues appear unremarkable. IMPRESSION: 1. NG tube should be inserted at least 10 more cm for optimal gastric placement. Dictated by: Marisa Julien M.D. on 02/24/2020 at 15:16 Approved by: Marisa Julien M.D. on 02/24/2020 at 15:17
[2020-02-24 17:05] LABS: COVID19 -Nasal RAPID Negative (Negative)
[2020-02-24] MEDS: SODIUM CHLORIDE 0.9% 1,000 ML 100 ML IV (17:20)
--- NOTE | 2020-02-24 18:16 | P.HP_ITS ---
History of Present Illness History of Present Illness Date Patient Seen: 02/24/20 Time Patient Seen: 18:16 Chief complaint: Feeling sick/ nausea/ vomitting Narrative: 54-year-old male seen in consultation for a small-bowel obstruction. He has no prior abdominal surgery. He presented with 3 days of worsening abdominal distension and initially some diarrhea. He has had no flatus or bowel movement for the last 2 days and this is associated with nausea and vomiting abdominal discomfort. In the emergency room he underwent a CT scan which demonstrates a small-bowel obstruction with a transition point in the right lower quadrant. At the time of admission he is afebrile white blood cell count 12 the remainder of his labs unremarkable. A nasogastric tube was placed in the ER. He has no relevant medical or surgical history Patient History Medical History No significant medical problems (Acute) Family & Social History Social History: household members none Prior Living Arrangements House Safety & Behavioral: Feels Safe in Current Yes Environment Been Physically Hurt or No Threatened By a Person Suicidal Ideation Description None Suicide Plan Description No Plan Tobacco & Substance use: Smoking Status Former smoker alcohol intake frequency holiday/special occasion Substance Use Type does not use Meds Home Medications and Allergies Home Medications Medication Instructions Recorded Confirmed Type No Known Home Medications 02/24/20 02/24/20 History Allergies Allergy/AdvReac Type Severity Reaction Status Date / Time acetaminophen [From Vicodin] Allergy Severe hives on Verified 02/24/20 12:28 face hydrocodone [From Vicodin] Allergy Severe hives on Verified 02/24/20 12:28 face Review of Systems Review of Systems Narrative: A 10 point review of systems is negative except as noted in the HPI Exam Vital Signs (past 8 hours): - 02/24/20 12:28 02/24/20 13:00 02/24/20 14:12 Temperature 97.9 F Pulse Rate 104 H 72 72 Respiratory Rate 17 15 Blood Pressure 133/89 144/83 H Pulse Oximetry 98 100 100 02/24/20 14:30 02/24/20 15:00 02/24/20 16:00 Temperature Pulse Rate 69 68 77 Respiratory Rate 17 Blood Pressure 143/77 H Pulse Oximetry 99 100 98 02/24/20 17:15 Temperature 97.5 F L Pulse Rate 75 Respiratory Rate 18 Blood Pressure 136/87 Pulse Oximetry 94 Oxygen Delivery Method Room Air Narrative Exam Narrative: General-no acute distress, well nourished adult male HEENT-moist mucous membranes, no scleral icterus Neck-supple, no lymphadenopathy Chest- non labored respirations, clear to auscultation bilaterally Cardiac-regular rate no peripheral edema Abdomen-distended has discomfort with palpation no peritonitis. Extremities-warm, well perfused Neurological-alert and oriented, no focal deficits Objective Labs Result Diagrams: 02/24/20 12:48 02/24/20 12:48 Labs: Laboratory Results - last 24 hr 02/24/20 02/24/20 02/24/20 12:48 12:48 12:48 WBC 11.6 H RBC 5.63 Hgb 15.9 Hct 46.3 MCV 82.3 MCH 28.2 MCHC 34.3 RDW 13.3 Plt Count 421 H Neut % (Auto) 79.2 H Lymph % (Auto) 9.8 L [place] % (Auto) 10.6 Eos % (Auto) 0.1 L Baso % (Auto) 0.3 Neut # (Auto) 9200 H Lymph # (Auto) 1100 [place] # (Auto) 1200 H Eos # (Auto) 0 Baso # (Auto) 0 PT INR APTT Sodium 133 L Potassium 3.7 Chloride 95 L Carbon Dioxide 22 BUN 29 H Creatinine 1.18 Estimated GFR > 60.0 BUN/Creatinine Ratio 24.6 H Glucose 134 H Calcium 10.2 Total Bilirubin 1.0 AST 44 ALT 53 H Alkaline Phosphatase 82 Total Creatine Kinase 131 CK-MB (CK-2) 1.58 CK-MB (CK-2) Rel Index 1.2 L Troponin I < 0.012 Total Protein 8.9 H Albumin 4.8 Globulin 4.1 Albumin/Globulin Ratio 1.2 Lipase 83 Urine RBC Urine WBC Ur Squamous Epith Cells Urine Bacteria Hyaline Casts Urine Mucus Ur Culture Indicated? COVID-19 PCR 02/24/20 02/24/20 02/24/20 12:48 13:40 16:07 WBC RBC Hgb Hct MCV MCH MCHC RDW Plt Count Neut % (Auto) Lymph % (Auto) [place] % (Auto) Eos % (Auto) Baso % (Auto) Neut # (Auto) Lymph # (Auto) [place] # (Auto) Eos # (Auto) Baso # (Auto) PT 13.9 H INR 1.2 APTT 29 Sodium Potassium Chloride Carbon Dioxide BUN Creatinine Estimated GFR BUN/Creatinine Ratio Glucose Calcium Total Bilirubin AST ALT Alkaline Phosphatase Total Creatine Kinase CK-MB (CK-2) CK-MB (CK-2) Rel Index Troponin I Total Protein Albumin Globulin Albumin/Globulin Ratio Lipase Urine RBC 0-1/hpf Urine WBC 0-1/hpf Ur Squamous Epith Cells 0-1 /hpf Urine Bacteria None seen Hyaline Casts 1-5/lpf Urine Mucus 1+ H Ur Culture Indicated? Cult not indicated COVID-19 PCR Negative Assessment & Plan Assessment and plan (1) SBO (small bowel obstruction): Status: Acute Assessment & Plan narrative: 54-year-old male no prior abdominal surgery with a small-bowel obstruction. I reviewed his CT scan demonstrates a small-bowel obstruction with a transition point in the right lower quadrant. He has no peritonitis no fever no significant leukocytosis. A nasogastric tube has been placed a small-bowel follow-through has been ordered. Discussed with patient that he has a small-bowel obstruction and we will await the results of his follow-through study. I told him that if the contrast does not transit into the colon then he will require a exploratory laparotomy however this may self resolv e. His questions have been answered he is in agreement with this plan -NPO okay for sips of water and ice chips if nasogastric tube is working -IV fluids -SCDs for VT prophylaxis Quality VTE Deep Vein Thrombosis/Pulmonary Embolism Present on Admission: No
[2020-02-24] MEDS: HYDROMORPHONE 1 MG INJ 0.5 MG IV (19:54)
[2020-02-24] MEDS: HYDROMORPHONE 2 MG INJ 1 MG IV ×2 (21:16→23:42)
--- NOTE | 2020-02-24 21:59 | PC.NURSE ---
Pt arrived on unit with NG clamped and denied pain. At 1730 Gastrogafin was administered per NG by DI and an xray was taken. Two hours later another xray was taken and showed the contrast had not moved. Meanwhile patient began to develop pain that was untouched by 0.5 mg Dilaudid IVP. Pain med increased to 1 mg Dilaudid IVP q 2 hours which was effective. At 2200 the final xray was taken which showed that the contrast had only moved slightly. Dr. Blake has said that patient could be on wall suction low intermittent but patient would prefer to keep the gastrogafin in place in the hopes it will blow through the blockage. Advised if pain continues suction may be necessary. VSS. Afebrile.
--- NOTE | 2020-02-24 22:27 | PC.NURSE ---
Pt is now on low intermittent suction and has 1 liter of green thin output.
[2020-02-25 00:01] VITALS: BP 142/71; PULSE 62; RESP 18; TEMP 36; O2SAT 97
[2020-02-25] MEDS: HYDROMORPHONE 2 MG INJ 1 MG IV ×5 (03:17→17:19)
[2020-02-25 04:00] VITALS: BP 135/78; PULSE 60; RESP 16; TEMP 36; O2SAT 97
[2020-02-25] MEDS: SODIUM CHLORIDE 0.9% 1,000 ML 150 ML IV ×3 (04:39→18:21)
[2020-02-25 06:17] LABS: Add Manual Diff / Slide Review NO; BUN Creatinine Ratio 30.3 (6-22); Basophils Absolute Auto 0 /uL (0-100); Basophils Percent Auto 0.2 % (0-2); Blood Urea Nitrogen 36 mg/dL (9-20); Calcium 9.5 mg/dL (8.4-10.2); Carbon Dioxide 28 mmol/L (22-32); Chloride 97 mmol/L (98-107); Eosinophils Absolute Auto 0 /uL (0-450); Eosinophils Percent Auto 0.2 % (2-4); Estimated Glomerular Filt Rate > 60.0 mL/min (>60); Glucose 127 mg/dL (70-100); HEMOLYSIS < 15 (0-50); Hematocrit 45.5 % (41-53); Hemoglobin 15.6 g/dL (13.5-17.5); Lymphocytes Absolute Auto 800 /uL (1100-4500); Lymphocytes Percent Auto 10.9 % (25-40); Mean Corpuscular HGB Conc 34.2 % (30-36); Mean Corpuscular Hemoglobin 28.7 PG (26-34); Mean Corpuscular Volume 83.8 fL (80-100); Monocytes Absolute Auto 1200 /uL (0-900); Monocytes Percent Auto 16.3 % (3-14); Neutrophils Absolute Auto 5500 /uL (1500-7000); Neutrophils Percent Auto 72.4 % (50-75); Platelet Count 349 X10^3/uL (150-400); Potassium 3.9 mmol/L (3.4-5.1); Red Blood Cell Count 5.43 X10^6/uL (4.5-5.9); Red Cell Distribution Width 13.6 % (11.6-14.8); Sodium 135 mmol/L (137-145); White Blood Cell Count 7.5 X10^3/uL (4.5-11.0)
[2020-02-25 07:25] VITALS: BP 146/71; PULSE 62; RESP 17; TEMP 36; O2SAT 94
--- NOTE | 2020-02-25 09:44 | PC.NURSE ---
Addendum entered by Jesusita Estes R.N. 02/25/20 13:11: 1300 Patient reports pain 6/10, PRN medication administered, patient also has started feeling nauseous, PRN zofran administered. Patient tolerated well. SCD's on, call light in reach, NG tube set to low, HOB at 30 degrees. Will continue to monitor. Addendum entered by Jesusita Estes R.N. 02/25/20 13:09: 1200 patient standing bedside to relieve back pain, denies wanting pain medication at this time. Ambulating around the bed with NG at low suction. Reports feeling a little dizzy instructed patient on getting back into bed to stay safe. Patient denies flatus at this time. Original Note: Patient is resting in bed this AM. N/G set to low intermittent suction, canister at about 300ml with greenish bile. HOB at 30 degrees. Patient c/o abdominal pain 7/10, abdomen is distended, round, hypoactive BT. Patient reports intermittent nausea. PRN pain medication given at 0800, see MAR. NS@150/hour running in L AC. Noted R AC site, CDI, patent. SCD's on bilaterally. Call light in reach.
--- NOTE | 2020-02-25 11:03 | PM.PN.1 ---
Subjective Subjective Date Patient Seen: 02/25/20 Time Patient Seen: 11:03 Interval history: No acute overnight events. Continues with nasogastric tube in place undergoing small-bowel follow-through study. No flatus or bowel movement. Exam Vital Signs (past 8 hours): - 02/25/20 04:00 02/25/20 07:25 Temperature 96.8 F L 96.8 F L Pulse Rate 60 62 Respiratory Rate 16 17 Blood Pressure 135/78 146/71 H Pulse Oximetry 97 94 Oxygen Delivery Method Room Air Oxygen Flow Rate 0 Narrative Exam Narrative: General adult male alert oriented no acute distress Chest nonlabored respirations Abdomen distended no peritonitis Objective Labs Result Diagrams: 02/25/20 05:58 02/25/20 05:58 Labs: Laboratory Results - last 24 hr 02/24/20 02/24/20 02/24/20 12:48 12:48 12:48 WBC 11.6 H RBC 5.63 Hgb 15.9 Hct 46.3 MCV 82.3 MCH 28.2 MCHC 34.3 RDW 13.3 Plt Count 421 H Neut % (Auto) 79.2 H Lymph % (Auto) 9.8 L [place] % (Auto) 10.6 Eos % (Auto) 0.1 L Baso % (Auto) 0.3 Neut # (Auto) 9200 H Lymph # (Auto) 1100 [place] # (Auto) 1200 H Eos # (Auto) 0 Baso # (Auto) 0 PT INR APTT Sodium 133 L Potassium 3.7 Chloride 95 L Carbon Dioxide 22 BUN 29 H Creatinine 1.18 Estimated GFR > 60.0 BUN/Creatinine Ratio 24.6 H Glucose 134 H Calcium 10.2 Total Bilirubin 1.0 AST 44 ALT 53 H Alkaline Phosphatase 82 Total Creatine Kinase 131 CK-MB (CK-2) 1.58 CK-MB (CK-2) Rel Index 1.2 L Troponin I < 0.012 Total Protein 8.9 H Albumin 4.8 Globulin 4.1 Albumin/Globulin Ratio 1.2 Lipase 83 Urine RBC Urine WBC Ur Squamous Epith Cells Urine Bacteria Hyaline Casts Urine Mucus Ur Culture Indicated? COVID-19 PCR 02/24/20 02/24/20 02/24/20 12:48 13:40 16:07 WBC RBC Hgb Hct MCV MCH MCHC RDW Plt Count Neut % (Auto) Lymph % (Auto) [place] % (Auto) Eos % (Auto) Baso % (Auto) Neut # (Auto) Lymph # (Auto) [place] # (Auto) Eos # (Auto) Baso # (Auto) PT 13.9 H INR 1.2 APTT 29 Sodium Potassium Chloride Carbon Dioxide BUN Creatinine Estimated GFR BUN/Creatinine Ratio Glucose Calcium Total Bilirubin AST ALT Alkaline Phosphatase Total Creatine Kinase CK-MB (CK-2) CK-MB (CK-2) Rel Index Troponin I Total Protein Albumin Globulin Albumin/Globulin Ratio Lipase Urine RBC 0-1/hpf Urine WBC 0-1/hpf Ur Squamous Epith Cells 0-1 /hpf Urine Bacteria None seen Hyaline Casts 1-5/lpf Urine Mucus 1+ H Ur Culture Indicated? Cult not indicated COVID-19 PCR Negative 02/25/20 02/25/20 05:58 05:58 WBC 7.5 RBC 5.43 Hgb 15.6 Hct 45.5 MCV 83.8 MCH 28.7 MCHC 34.2 RDW 13.6 Plt Count 349 Neut % (Auto) 72.4 Lymph % (Auto) 10.9 L [place] % (Auto) 16.3 H Eos % (Auto) 0.2 L Baso % (Auto) 0.2 Neut # (Auto) 5500 Lymph # (Auto) 800 L [place] # (Auto) 1200 H Eos # (Auto) 0 Baso # (Auto) 0 PT INR APTT Sodium 135 L Potassium 3.9 Chloride 97 L Carbon Dioxide 28 BUN 36 H Creatinine 1.19 Estimated GFR > 60.0 BUN/Creatinine Ratio 30.3 H Glucose 127 H Calcium 9.5 Total Bilirubin AST ALT Alkaline Phosphatase Total Creatine Kinase CK-MB (CK-2) CK-MB (CK-2) Rel Index Troponin I Total Protein Albumin Globulin Albumin/Globulin Ratio Lipase Urine RBC Urine WBC Ur Squamous Epith Cells Urine Bacteria Hyaline Casts Urine Mucus Ur Culture Indicated? COVID-19 PCR Assessment & Plan Assessment & Plan narrative: 54-year-old man no prior abdominal surgery here with a small-bowel obstruction. Nasogastric tube is in place he is undergoing a small-bowel follow-through. Will review was study once complete if the contrast has not reached the colon then he will require exploratory laparotomy. -NPO IV fluids -nasogastric tube low wall suction -SCDs Quality VTE Deep Vein Thrombosis/Pulmonary Embolism Present on Admission: No
[2020-02-25 11:15] VITALS: BP 137/77; PULSE 63; RESP 18; TEMP 36.1; O2SAT 96
[2020-02-25] MEDS: ONDANSETRON 4 MG/2 ML INJ IV (13:04)
[2020-02-25 15:36] VITALS: BP 137/84; PULSE 63; RESP 20; TEMP 36.7; O2SAT 97
--- NOTE | 2020-02-25 16:27 | CM.DANOTE ---
Discharge Planning/Care Management DCP: assessment: initiated: case received, EMR reviewed and discussed in Team Rounds. Pt is a 54 year old male who admitted yesterday afternoon to care of [facility]: Dr. Blake. PCP: not listed on face sheet: will need to followup with pt. Payer: [employer] Admission status: INPT: confirmed by PORTILLO RN Nelli Rn coordinator Sammy noted in Rounds that NGT was in place and putting out impressive amount of drainage. A small bowel follow-through was planned to today and with ? of need for surgery if test results showed need for same. P: Lateness of hour dictates need to defer to DCP team to followup tomorrow as more is known re the POC to meet with pt and begin discussion of d/c issues and options. CM Discharge Assessment Start: 02/25/20 16:26 Freq: Status: Active Protocol: Document 02/25/20 16:26 ITV (Rec: 02/25/20 16:27 ITV [id number]) Discharge Planning Assessment Advance Directives? No History Provided By Medical Record Prior Living Arrangements House Household Members none Is patient alert and oriented? Yes Review Status In Process
[2020-02-25 19:49] VITALS: BP 132/75; PULSE 64; RESP 18; TEMP 36.2; O2SAT 95
[2020-02-25] MEDS: HYDROMORPHONE 1 MG INJ IV ×2 (20:34→23:57)
[2020-02-26] VITALS (15 sets, daily range): BP systolic 120–158; BP diastolic 56–83; PULSE 62–87; RESP 11–18; TEMP 36.5–37.1; O2SAT 93–99
--- NOTE | 2020-02-26 | PATH_ITS ---
[facility] Accession Number: [id number] . 01 Material submitted: . small bowel - [facility] . 01 Clinical history: . FEELING SICK/NAUSEA/VOMITING . 02 Diagnosis: Small Bowel, Resection: 1. Serosal fibrous adhesions. 2. Mild submucosal congestion, suggestive of early ischemic changes. 3. Margins are viable. 4. No evidence of vasculitis, enteritis, dysplasia or malignancy. MRV 02/28/2020 1344 Local . 02 Electronically signed: . Jazmin Milligan MD, Pathologist NPI- [id number] . 01 Gross description: . Received in formalin, labeled with the patient's name, MRN and small bowel resection, is a 6.5 cm in length x 2.2 cm in diameter portion of small bowel with two opposing stapled resection margins. The serosal surface is purple-pink with adherent exudate. The specimen is opened to reveal a pink-dutta mucosal surface with unremarkable mucosal folds. No masses, polyps, or perforations are identified. Pillow Filler sections are submitted in cassettes A1-A2. . Cassette Summary: A1 - Shave of margins. A2 - Pillow Filler sections of small bowel wall. ([id number]) /[facility] 02/27/2020 1545 Local . 02 Pathologist provided ICD-10: K56.609, K56.50 . 02 CPT . 860141 Performed at: 01 [facility] [address], [place], [place] [id number] MD Terence Cedeño MD Phone: [phone] Performed at: 02 [facility] [address] [place], [place] [id number] MD Jazmin Milligan MD Phone: [phone]
[2020-02-26] MEDS: SODIUM CHLORIDE 0.9% 1,000 ML 150 ML IV ×4 (00:32→23:58)
[2020-02-26] MEDS: HYDROMORPHONE 1 MG INJ IV ×4 (04:01→23:54)
[2020-02-26 06:26] LABS: Add Manual Diff / Slide Review NO; Basophils Absolute Auto 0 /uL (0-100); Basophils Percent Auto 0.3 % (0-2); Eosinophils Absolute Auto 0 /uL (0-450); Eosinophils Percent Auto 0.7 % (2-4); Hematocrit 43.5 % (41-53); Hemoglobin 14.7 g/dL (13.5-17.5); Lymphocytes Absolute Auto 900 /uL (1100-4500); Lymphocytes Percent Auto 17.9 % (25-40); Mean Corpuscular HGB Conc 33.7 % (30-36); Mean Corpuscular Hemoglobin 28.8 PG (26-34); Mean Corpuscular Volume 85.3 fL (80-100); Monocytes Absolute Auto 1100 /uL (0-900); Monocytes Percent Auto 22.7 % (3-14); Neutrophils Absolute Auto 2800 /uL (1500-7000); Neutrophils Percent Auto 58.4 % (50-75); Platelet Count 324 X10^3/uL (150-400); Red Blood Cell Count 5.09 X10^6/uL (4.5-5.9); Red Cell Distribution Width 13.3 % (11.6-14.8); White Blood Cell Count 4.8 X10^3/uL (4.5-11.0)
[2020-02-26 06:27] LABS: BUN Creatinine Ratio 29.9 (6-22); Blood Urea Nitrogen 29 mg/dL (9-20); Calcium 8.9 mg/dL (8.4-10.2); Carbon Dioxide 30 mmol/L (22-32); Chloride 102 mmol/L (98-107); Estimated Glomerular Filt Rate > 60.0 mL/min (>60); Glucose 109 mg/dL (70-100); HEMOLYSIS < 15 (0-50); Potassium 4.1 mmol/L (3.4-5.1); Sodium 138 mmol/L (137-145)
[2020-02-26] MEDS: LACTATED RINGERS 1,000 ML 42 ML IV ×2 (12:20→13:08)
[2020-02-26] MEDS: PIPERACILLIN-TAZO 3.375 GM/50 ML FROZ.PIGGY IV (12:23)
--- NOTE | 2020-02-26 12:49 | SUR.OPER ---
Supine on padded OR bed, head on pillow, arms secured on padded arm boards at <90 degrees abduction, legs uncrossed, safety belt at thigh, tape over blanket over lower legs.
[2020-02-26] MEDS: BUPIVACAINE 0.25% (PF) VIAL 30 ML INJ (13:52)
--- NOTE | 2020-02-26 14:08 | P.OP_ITS ---
Operative Date/Time/Diagnoses Date of procedure: 02/26/20 Time of procedure: 14:08 Pre-op diagnosis: Small-bowel obstruction Post-op diagnosis: same Procedure & Clinicians Procedure: Exploratory laparotomy Lysis of adhesions Small-bowel resection Same procedure as scheduled: Yes Indications: 54-year-old man no prior abdominal surgery presented with a small- bowel obstruction. Small-bowel follow-through study was performed there was no passage of contrast from the small bowel into the colon. Surgeon: Pancho Blake [facility] [address] Supervisor: Dany Kirk Anesthesia Type: General Operative Notes Findings: One adhesive band across the distal small bowel in the right lower quadrant. The transition point was mildly ischemic and partially stenotic Specimen(s): other (Small-bowel resection) Estimated Blood Loss (mL): 20 Procedure in detail: Patient brought to the operating room placed supine on the table. Bilateral lower extremity compression devices were applied. General anesthesia was induced he was intubated with a endotracheal tube. Solares catheter was placed sterilely. He was prepped and draped in sterile fashion. A time-out was performed. A lower midline incision was made. The skin was sharply incised the subcutaneous tissues divided with electrocautery. The fascia was grasped elevated and sharply incised the abdomen was entered atraumatically. The small bowel was eviscerated from the abdomen. There was 1 adhesive band in the right lower quadrant which was lysed releasing the entirety of the small bowel. The small bowel was extremely dilated up to the transition point. The content of the small bowel was carefully milked proximally and out the nasogastric tube a total of approximately 3 L was drained in this fashion. Inspection of the transition point demonstrated that it was mildly ischemic and it was partially stenotic. Given these findings I elected to perform a small-b owel resection. Window within the mesentery proximal and distal to the transition point was made the bowel was then transected using the ESTHER stapler blue load. The mesentery to the resected segment was divided between clamps and silk ties. The specimen was passed off the field as small bowel resection. The small bowel was then fashioned in a [id number] anastomosis. Silk suture was placed at the crotch of the anastomosis. An enterotomy was made in both limbs of the small bowel and then a ESTHER stapler was used to create a common channel. The channel was inspected and was hemostatic and widely patent. The common channel was then closed in a single layer using a running 3 0 PDS suture. The mesenteric defect was closed using silk suture. Inspection of the final anastomosis demonstrated that it was patent and well perfused. Small bowel content was then returned to the abdomen. Careful inspection of the right lower quadrant was again made there were no further adhesive bands here. The abdomen was irrigated with several L of the saline. The midline fascia was then closed in a running fashion using 1. PDS subcutaneous tissues with Vicryl and the skin closed in a running fashion using Monocryl followed by the application of Dermabond and Steri-Strips. Patient emerged from anesthesia was extubated and transferred to recovery room in stable condition. Complications: none Post-operative Condition: stable Disposition: Acute Care
--- NOTE | 2020-02-26 14:21 | PM.PN.1 ---
Subjective Subjective Date Patient Seen: 02/26/20 Time Patient Seen: 14:21 Interval history: No acute overnight events. Small-bowel follow-through demonstrates no transit of contrast into the colon. He was taken to the operating room today for a exploratory laparotomy lysis of adhesions small-bowel resection. Exam Vital Signs (past 8 hours): - 02/26/20 08:49 02/26/20 12:22 Temperature 98.7 F 97.8 F Pulse Rate 71 76 Respiratory Rate 16 15 Blood Pressure 135/77 158/56 H Pulse Oximetry 96 96 Oxygen Delivery Method Room Air Oxygen Flow Rate 0 Narrative Exam Narrative: General adult male alert oriented no acute distress Chest nonlabored respirations Abdomen moderately distended incision clean dry intact appropriately tender palpation Objective Labs Result Diagrams: 02/26/20 05:38 02/26/20 05:38 Labs: Laboratory Results - last 24 hr 02/26/20 02/26/20 05:38 05:38 WBC 4.8 RBC 5.09 Hgb 14.7 Hct 43.5 MCV 85.3 MCH 28.8 MCHC 33.7 RDW 13.3 Plt Count 324 Neut % (Auto) 58.4 Lymph % (Auto) 17.9 L [place] % (Auto) 22.7 H Eos % (Auto) 0.7 L Baso % (Auto) 0.3 Neut # (Auto) 2800 Lymph # (Auto) 900 L [place] # (Auto) 1100 H Eos # (Auto) 0 Baso # (Auto) 0 Sodium 138 Potassium 4.1 Chloride 102 Carbon Dioxide 30 BUN 29 H Creatinine 0.97 Estimated GFR > 60.0 BUN/Creatinine Ratio 29.9 H Glucose 109 H Calcium 8.9 Assessment & Plan Assessment & Plan narrative: 54-year-old man postoperative day 0 after an exploratory laparotomy small bowel resection lysis of adhesions for small-bowel obstruction. He will have a significant postoperative ileus. He has been without nutrition for last 7 days a PICC line has been ordered as well as TPN until he has ability to take adequate oral nutrition. -nasogastric tube to intermittent low wall suction -PICC and TPN -SCDs and Lovenox Quality VTE Deep Vein Thrombosis/Pulmonary Embolism Present on Admission: No
--- NOTE | 2020-02-26 14:43 | SUR.PHASEI ---
Attempted to give report to receiving nurse twice, once at 1430 and once at 1443. Nurse unable to take report.
--- NOTE | 2020-02-26 16:34 | DI.RAD.S_ITS ---
PROCEDURE: XR CHEST FOR PICC 1V INDICATIONS: line placement COMPARISON: Located Within [facility], CR, XR CHEST 1V, 02/24/2020, 15:40. Located Within [facility], CR, XR CHEST 1V, 02/24/2020, 12:58. FINDINGS: PICC was placed by the intravenous therapy team from the right side. Fluoroscopic spot film demonstrates the tip of PICC projecting to the area of middle 3rd of the SVC. A esophagogastric tube extends below the imaging margin, with tip at least in the gastric body. IMPRESSION: Tip of PICC projects to the area of distal SVC from right-sided approach. Esophagogastric tube positioning appears normal also. Dictated by: Babak Ha M.D. on 02/26/2020 at 16:49 Approved by: Babak Ha M.D. on 02/26/2020 at 16:50
--- NOTE | 2020-02-26 17:16 | PC.NURSE ---
Addendum entered by Nataly Sol R.N. 02/26/20 22:42: bowel tones hypo. pt had 100cc out of NG. 1mg dilaudid for pain 5/10. Original Note: A&OX4. 95%RA. pain 4/10 and tolerable, refused intervention. NPO, ice chips ok per provider. NG tube set to low intermittent suction. IVF NS @ 150cc/hr. PICC placed to RUE. no blood sugar checks per provider. call light in reach.
[2020-02-26] MEDS: AA 5 %/CALCIUM/LYTES/DEXT 20 % 1,000 ML with MULTIVITAMIN 10 ML, TRACE ELEMENTS 1 ML 42.125 ML IV (18:07)
[2020-02-26] MEDS: FAT EMULSIONS 50 GM/250 ML EMULSION IV (18:07)
[2020-02-27] VITALS (7 sets, daily range): BP systolic 105–151; BP diastolic 52–81; PULSE 75–91; RESP 16–20; TEMP 36.5–37.6; O2SAT 93–96
[2020-02-27] MEDS: HYDROMORPHONE 1 MG INJ IV ×3 (04:10→20:08)
[2020-02-27 06:01] LABS: Add Manual Diff / Slide Review NO; Basophils Absolute Auto 0 /uL (0-100); Basophils Percent Auto 0.3 % (0-2); Eosinophils Absolute Auto 0 /uL (0-450); Eosinophils Percent Auto 0.2 % (2-4); Hematocrit 37.7 % (41-53); Lymphocytes Absolute Auto 800 /uL (1100-4500); Lymphocytes Percent Auto 11.7 % (25-40); Mean Corpuscular HGB Conc 34.5 % (30-36); Mean Corpuscular Hemoglobin 29.1 PG (26-34); Mean Corpuscular Volume 84.5 fL (80-100); Monocytes Absolute Auto 900 /uL (0-900); Monocytes Percent Auto 13.6 % (3-14); Neutrophils Absolute Auto 4800 /uL (1500-7000); Neutrophils Percent Auto 74.2 % (50-75); Platelet Count 286 X10^3/uL (150-400); Red Blood Cell Count 4.47 X10^6/uL (4.5-5.9); Red Cell Distribution Width 12.8 % (11.6-14.8); White Blood Cell Count 6.4 X10^3/uL (4.5-11.0)
[2020-02-27 06:18] LABS: BUN Creatinine Ratio 23.5 (6-22); Blood Urea Nitrogen 23 mg/dL (9-20); Calcium 7.9 mg/dL (8.4-10.2); Carbon Dioxide 27 mmol/L (22-32); Chloride 104 mmol/L (98-107); Estimated Glomerular Filt Rate > 60.0 mL/min (>60); Glucose 127 mg/dL (70-100); HEMOLYSIS < 15 (0-50); Potassium 3.8 mmol/L (3.4-5.1); Sodium 137 mmol/L (137-145)
[2020-02-27] MEDS: SODIUM CHLORIDE 0.9% 1,000 ML 150 ML IV ×3 (06:35→20:08)
--- NOTE | 2020-02-27 09:11 | CM.DPC ---
DCP Cont: Checked in with patient. 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 He has NG tube in place, and PICC line for TPN, to keep up his nutrition. Asked him if he has a primary care provider, and he stated that he has been going to the [facility] with Dr. Ck Bryant, but he indicated that they are closing. Let him know that [facility] has new providers that are accepting new patients, and can give him resources upon discharge. Patient resides alone in [place]. P: DCP to follow closely for any needs. Will consult with dietary as well. 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 Lissette Sifuentes RN/Social Media Developer
--- NOTE | 2020-02-27 09:58 | P.PN_ITS ---
Subjective Subjective Date Patient Seen: 02/27/20 Time Patient Seen: 09:59 Interval history: No acute overnight events. Nasogastric tube in place no flatus or bowel movement yet pain is well controlled Exam Vital Signs (past 8 hours): - 02/27/20 04:24 02/27/20 08:13 Temperature 98.9 F 97.7 F Pulse Rate 75 91 H Respiratory Rate 18 16 Blood Pressure 105/52 L 129/79 Pulse Oximetry 93 93 Oxygen Delivery Method Room Air Oxygen Flow Rate 0 Narrative Exam Narrative: General adult male alert oriented no acute distress Chest nonlabored respirations Abdomen appropriately tender to palpation midline incision clean dry intact the abdomen is mildly distended but significantly less than yesterday. Objective Labs Result Diagrams: 02/27/20 05:40 02/27/20 05:40 Labs: Laboratory Results - last 24 hr 02/27/20 02/27/20 05:40 05:40 WBC 6.4 RBC 4.47 L Hgb 13.0 L Hct 37.7 L MCV 84.5 MCH 29.1 MCHC 34.5 RDW 12.8 Plt Count 286 Neut % (Auto) 74.2 Lymph % (Auto) 11.7 L [place] % (Auto) 13.6 Eos % (Auto) 0.2 L Baso % (Auto) 0.3 Neut # (Auto) 4800 Lymph # (Auto) 800 L [place] # (Auto) 900 Eos # (Auto) 0 Baso # (Auto) 0 Sodium 137 Potassium 3.8 Chloride 104 Carbon Dioxide 27 BUN 23 H Creatinine 0.98 Estimated GFR > 60.0 BUN/Creatinine Ratio 23.5 H Glucose 127 H Calcium 7.9 L Assessment & Plan Post-op Postoperative Procedures: Procedures Operation Date: 02/26/20 12:30 Actual Procedures Side Surgeon p Exploratory Laparotomy GEN with lysis of adhesions and small bowel resection Pancho Blake MD Postoperative plan narrative: 54-year-old man postoperative day 1 after exploratory laparotomy lysis of adhesions and small-bowel resection for an adhesive small bowel obstruction. He is making appropriate recovery he has a postoperative ileus. -postoperative ileus- continue nasogastric tube to intermittent low wall suction okay for ice chips and chewing gum. Await return of bowel function -out of bed ambulate. -SCDs and prophylactic Lovenox Quality VTE Deep Vein Thrombosis/Pulmonary Embolism Present on Admission: No
--- NOTE | 2020-02-27 11:41 | PC.NURSE ---
Addendum entered by Will Haywood R.N. 02/27/20 13:26: Pain 12/26. Patient does not want pain medication. It has been offered multiple times, but patient is afraid that it is the partial blame for his constipation. Original Note: Patient VSS, no flatus present, bowel tones hypoactive. Patient is having some pain in his abdomen 10/26. Patient NG in right nare, good output. PICC line dressing changed today due to leakage and lack of seal. TPN running 42.1. Patient is anxious about lack of bowel motility, was ambulating in halls today. Per Dr. Blake, ok to give patient chewing gum.
[2020-02-27] MEDS: AA 5 %/CALCIUM/LYTES/DEXT 20 % 1,000 ML with MULTIVITAMIN 10 ML, TRACE ELEMENTS 1 ML 42.125 ML IV (18:53)
--- NOTE | 2020-02-27 20:13 | DI.RAD.S_ITS ---
PROCEDURE: XR CHEST 1V INDICATIONS: acute abdominal pain TECHNIQUE: One view of the chest was acquired. COMPARISON: [facility], CT, CT ABDOMEN PELVIS W CON, 02/24/2020, 13:15. [facility], CR, XR CHEST 1V, 02/24/2020, 15:40. FINDINGS: Surgical changes and devices: There is a nasogastric tube in the stomach. Lungs and pleura: Right basilar opacity may be infiltrate or atelectasis. Possible small right pleural effusion. No pneumothorax. Mediastinum: Mediastinal contours appear normal. Heart size is normal. Bones and chest wall: No suspicious bony lesions. Overlying soft tissues appear unremarkable. IMPRESSION: 1. Nasogastric tube in the stomach. 2. Right basilar infiltrate or atelectasis. Dictated by: Jesus Hays M.D. on 02/27/2020 at 22:05 Approved by: Jesus Hays M.D. on 02/27/2020 at 22:06
[2020-02-27 20:45] LABS: Add Manual Diff / Slide Review NO; Basophils Absolute Auto 0 /uL (0-100); Basophils Percent Auto 0.2 % (0-2); Eosinophils Absolute Auto 100 /uL (0-450); Eosinophils Percent Auto 1.2 % (2-4); Hematocrit 37.4 % (41-53); Hemoglobin 12.5 g/dL (13.5-17.5); Lymphocytes Absolute Auto 1100 /uL (1100-4500); Lymphocytes Percent Auto 14.4 % (25-40); Mean Corpuscular HGB Conc 33.5 % (30-36); Mean Corpuscular Hemoglobin 28.5 PG (26-34); Monocytes Absolute Auto 1000 /uL (0-900); Monocytes Percent Auto 13.8 % (3-14); Neutrophils Absolute Auto 5200 /uL (1500-7000); Neutrophils Percent Auto 70.4 % (50-75); Platelet Count 282 X10^3/uL (150-400); Red Cell Distribution Width 13.1 % (11.6-14.8); White Blood Cell Count 7.4 X10^3/uL (4.5-11.0)
[2020-02-27 21:00] LABS: BUN Creatinine Ratio 22.1 (6-22); Blood Urea Nitrogen 19 mg/dL (9-20); Calcium 8.2 mg/dL (8.4-10.2); Carbon Dioxide 28 mmol/L (22-32); Chloride 105 mmol/L (98-107); Estimated Glomerular Filt Rate > 60.0 mL/min (>60); Glucose 122 mg/dL (70-100); HEMOLYSIS < 15 (0-50); Potassium 3.6 mmol/L (3.4-5.1); Sodium 137 mmol/L (137-145)
--- NOTE | 2020-02-27 22:14 | PC.NURSE ---
EVENING SHIFT A&Ox3, VSS. NG to low intermittent suction, clear green bile output. Has pain but reports it is tolerable and he doesn't wish for pain medication. Low fall risk, ambulating independently in halls. Around 7pm, reported increased cramping and took another walk. Got back to bed, experienced sudden onset increased pain, 9/10, tearful, agitated. VSS. NG functioning properly. Offered education regarding pain meds; pt continues to decline. Feels like something is wrong. Call placed to Dr. Blake. Orders obtained for lab work and x-ray. Patient experienced significant pain relief, labs unremarkable, xray report pending.
--- NOTE | 2020-02-27 22:37 | DI.RAD.S_ITS ---
PROCEDURE: XR CHEST 1V INDICATIONS: PICC placement TECHNIQUE: One view of the chest was acquired. COMPARISON: [facility], CR, XR CHEST 1V, 02/27/2020, 20:19. FINDINGS: Surgical changes and devices: NG tube projects across the GE junction and is coiled within the proximal stomach. PICC line projects to the mid SVC via right-sided approach. Lungs and pleura: Lungs are clear. No pleural effusions or pneumothorax. Mediastinum: Mediastinal contours appear normal. Heart size is normal. Bones and chest wall: No suspicious bony lesions. Overlying soft tissues appear unremarkable. IMPRESSION: Tip of PICC line projects to the mid SVC. Dictated by: Eileen Arredondo MD, PhD on 02/28/2020 at 9:10 Approved by: Eileen Arredondo MD, PhD on 02/28/2020 at 9:11
[2020-02-28] MEDS: HYDROMORPHONE 0.5 MG INJ IV (02:57)
[2020-02-28 03:11] VITALS: BP 132/70; PULSE 70; RESP 18; TEMP 37.2; O2SAT 93
[2020-02-28] MEDS: SODIUM CHLORIDE 0.9% 1,000 ML 150 ML IV (04:34)
[2020-02-28] MEDS: HYDROMORPHONE 1 MG INJ IV ×2 (06:35→13:45)
[2020-02-28 07:00] VITALS: BP 146/74; PULSE 74; RESP 16; TEMP 36.6; O2SAT 95
[2020-02-28] MEDS: ENOXAPARIN 40 MG/0.4 ML SYRINGE SUBCUT (08:56)
--- NOTE | 2020-02-28 09:05 | P.PN_ITS ---
Subjective Subjective Date Patient Seen: 02/28/20 Time Patient Seen: 09:06 Interval history: Had a episode of severe pain overnight a upright chest x-ray and laboratory studies were obtained which were unremarkable. Vital signs remained stable he is afebrile. This morning he feels significantly better he feels less distended than he did yesterday his pain is mostly incisional but he has been declining to take any narcotic pain medication. No flatus or bowel m ove Exam Vital Signs (past 8 hours): - 02/28/20 03:11 02/28/20 07:00 Temperature 98.9 F 97.9 F Pulse Rate 70 74 Respiratory Rate 18 16 Blood Pressure 132/70 146/74 H Pulse Oximetry 93 95 Oxygen Delivery Method Room Air Oxygen Flow Rate 0 Narrative Exam Narrative: Adult male alert oriented no acute distress Abdomen mildly distended incision clean dry intact appropriately tender to palpation Objective Labs Result Diagrams: 02/27/20 20:38 02/27/20 20:38 Labs: Laboratory Results - last 24 hr 02/27/20 02/27/20 20:38 20:38 WBC 7.4 RBC 4.40 L Hgb 12.5 L Hct 37.4 L MCV 85.0 MCH 28.5 MCHC 33.5 RDW 13.1 Plt Count 282 Neut % (Auto) 70.4 Lymph % (Auto) 14.4 L [place] % (Auto) 13.8 Eos % (Auto) 1.2 L Baso % (Auto) 0.2 Neut # (Auto) 5200 Lymph # (Auto) 1100 [place] # (Auto) 1000 H Eos # (Auto) 100 Baso # (Auto) 0 Sodium 137 Potassium 3.6 Chloride 105 Carbon Dioxide 28 BUN 19 Creatinine 0.86 Estimated GFR > 60.0 BUN/Creatinine Ratio 22.1 H Glucose 122 H Calcium 8.2 L Assessment & Plan Post-op Postoperative Procedures: Procedures Operation Date: 02/26/20 12:30 Actual Procedures Side Surgeon p Exploratory Laparotomy GEN with lysis of adhesions and small bowel resection Pancho Blake MD Postoperative status narrative: 54-year-old male postoperative day 2 after a exploratory laparotomy lysis of adhesions and small-bowel resection for an adhesive small bowel obstruction. He is doing well making appropriate recovery. # postoperative ileus-continue nasogastric tube to low wall intermittent suction okay for ice chips. Await return of bowel function. Will continue TPN until tolerating adequate oral nutrition. -out of bed ambulate -SCDs and Lovenox for DVT prophylaxis Quality VTE Deep Vein Thrombosis/Pulmonary Embolism Present on Admission: No
[2020-02-28 11:00] VITALS: BP 149/82; PULSE 77; RESP 15; TEMP 36.4; O2SAT 97
[2020-02-28] MEDS: METOCLOPRAMIDE 10 MG/2 ML INJ 5 MG IV ×2 (12:31→17:44)
--- NOTE | 2020-02-28 15:32 | PC.NURSE ---
Day Shift- pt A&OX4, able to make his needs known using call light. reports 4/10 aching and pressure to abd, more so to right side this AM, increased to 7/10 around 1330 and PRN IV Dilaudid given at 1350 with good effect. Pt states abd bloated slightly less than yesterday but that changes over time, belching, no flatus or BM yet. denies nausea. NGT to LIS throughout shift, marked with black pen at end of tape below nare to monitor NGT movement, did not change during this shift and evening RN aware. Output was approx 100mls this shift. Pt ambulated X2 in halls with rest periods in chair between. pt ambulated in halls indep with steady gait.
[2020-02-28 15:50] VITALS: BP 136/77; PULSE 70; RESP 16; TEMP 36.1; O2SAT 98
[2020-02-28] MEDS: HYDROMORPHONE 0.5 MG INJ 1 MG IV ×2 (17:44→21:18)
[2020-02-28] MEDS: AA 5 %/CALCIUM/LYTES/DEXT 20 % 1,000 ML with MULTIVITAMIN 10 ML, TRACE ELEMENTS 1 ML 42.125 ML IV (18:16)
[2020-02-28 21:00] VITALS: BP 131/65; PULSE 63; RESP 18; TEMP 36.7
[2020-02-28 23:28] VITALS: BP 148/78; PULSE 68; RESP 17; TEMP 36.6; O2SAT 95
[2020-02-29] MEDS: METOCLOPRAMIDE 10 MG/2 ML INJ 5 MG IV ×3 (00:04→11:22)
[2020-02-29] MEDS: SODIUM CHLORIDE 0.9% FLUSH 10 ML IV ×7 (00:04→21:46)
[2020-02-29] MEDS: HYDROMORPHONE 0.5 MG INJ 1 MG IV ×5 (00:06→18:16)
--- NOTE | 2020-02-29 01:40 | PC.NURSE ---
Addendum entered by Larisa Ortiz R.N. 02/29/20 03:31: Medicated with Dilaudid at 0306 for complaint of 7/10 abdominal pain Original Note: Patient initially seen and assessed at 0025. Is alert and oriented. Breath sounds CTA with RA sat of 95%. HRR. Denies nausea. NG patent to LIS with gastric contents returning. BT active but has still not passed any flatus. Abdomen is soft, tender and distended. Medicated for pain with IV Dilaudid Is voiding via urinal and denies dysuria, frequency or urgency. Midline incision is well approximated with intact steristrips and DAVID. Some mild erythema noted to skin on either side of incision. Able to move self in bed. During day is up ambulating in [place]. Wearing bilateral calf SCD's. Remains NPO except for ice and gum; TPN is infusing via DL PICC. Fall risk score is low.
[2020-02-29 02:44] VITALS: BP 131/72; PULSE 65; RESP 18; TEMP 36.3; O2SAT 95
[2020-02-29 07:44] VITALS: BP 136/80; PULSE 66; RESP 18; TEMP 36.1; O2SAT 95
--- NOTE | 2020-02-29 09:05 | CM.DPC ---
Addendum entered by Deborah Lake LPN 02/29/20 09:11: Pt is noted to be up and mobilizing independently in the halls. Original Note: DCP: continued: case received and spoke with Dr. Blake re the POC. He noted that pt did have surgery on 02/25 after results of the small bowel follow-through indicated need. Surgery: exploratory laparotomy: JOSE LUIS: small bowel resection. Pt today continues with NGT and TPN but Dr. Blake noted his improvement and continued good mobility. Will discuss case in Team Rounds and be following. Dr. Blake anticipates pt will be able to d/c to home setting when stable for same.
[2020-02-29] MEDS: ENOXAPARIN 40 MG/0.4 ML SYRINGE SUBCUT (09:28)
[2020-02-29 12:18] VITALS: BP 124/76; PULSE 80; RESP 15; TEMP 36.7; O2SAT 96
--- NOTE | 2020-02-29 12:42 | PM.PNPO.1 ---
Subjective Subjective Date Patient Seen: 02/29/20 Time Patient Seen: 12:42 Interval history: No acute overnight events. Abdomen less distended than yesterday no flatus or bowel movement yet. Exam Vital Signs (past 8 hours): - 02/29/20 07:44 02/29/20 12:18 Temperature 97.0 F L 98.0 F Pulse Rate 66 80 Respiratory Rate 18 15 Blood Pressure 136/80 124/76 Pulse Oximetry 95 96 Oxygen Delivery Method Room Air Oxygen Flow Rate 0 Narrative Exam Narrative: General adult male alert oriented no acute distress Chest nonlabored respiration Abdomen soft appropriately tender to palpation midline incision clean dry intact mild distension Objective Labs Result Diagrams: 02/27/20 20:38 02/27/20 20:38 Assessment & Plan Post-op Postoperative Procedures: Procedures Operation Date: 02/26/20 12:30 Actual Procedures Side Surgeon p Exploratory Laparotomy GEN with lysis of adhesions and small bowel resection Pancho Blake MD Postoperative status narrative: 54-year-old man postoperative day 3 after a exploratory laparotomy small bowel resection for an adhesive small bowel obstruction. His postoperative ileus will continue his nasogastric tube in TPN until he has return of bowel function. -NPO TPN and NG tube -SCDs and Lovenox for VT prophylaxis -OOB ambulate Quality VTE Deep Vein Thrombosis/Pulmonary Embolism Present on Admission: No
--- NOTE | 2020-02-29 15:35 | PC.NURSE ---
Day Shift- Pt had small loose brown BM with small elena like BM around 1250, pt was sitting in chair and stated having inc of BM and assisting himself to BSC at BR doorway. No flatus at that time. Pt stated his abd felt less cramping. Dr. Blake paged at 1404 at [phone] to be made aware of above progress. At 1430, [employer] reported pt having a second small loose BM on BSC. Evening RN aware of not yet reaching Dr. Blake. At shift change report, pt appears anxious, stating he wants the NGT out, pt aware the staff needs to contact Dr. Blake prior to NGT removal. NGT remains on LIS per order, clamped for ambulation in halls which pt was able to do indep. Blue air port on NGT flushed with air X1 for fluid leaking out of blue lumen. Abd midline incision covered with steri-strips. Light pink colored skin to bilateral incision and distal end of incision, normal skin temp compared to other skin areas. Pt had few ice chips, total 50mls out of NGT for day shift.
[2020-02-29] MEDS: POTASSIUM CHLORIDE 40 MEQ in SODIUM CHLORIDE 0.9% 500 ML 130 ML IV (15:57)
[2020-02-29 16:38] VITALS: BP 132/82; PULSE 73; RESP 20; TEMP 36.7; O2SAT 97
[2020-02-29] MEDS: AA 5 %/CALCIUM/LYTES/DEXT 20 % 1,000 ML with MULTIVITAMIN 10 ML, TRACE ELEMENTS 1 ML 42.125 ML IV (18:29)
[2020-02-29] MEDS: FAT EMULSIONS 50 GM/250 ML EMULSION IV (18:30)
[2020-02-29 19:40] VITALS: BP 135/73; PULSE 70; RESP 16; TEMP 36.8; O2SAT 96
[2020-02-29] MEDS: HYDROMORPHONE 0.5 MG INJ IV (21:45)
[2020-02-29 23:48] VITALS: BP 133/66; PULSE 75; RESP 16; TEMP 36.7; O2SAT 94
[2020-02-29] MEDS: OXYCODONE IR 5 MG TABLET PO (23:48)
--- NOTE | 2020-03-01 00:29 | PC.NURSE ---
Addendum entered by Larisa Ortiz R.N. 03/01/20 04:39: Awake and states that Oxy just annihilated me. Reports he woke up 1 hour ago and felt like he couldn't move and attributes it to a feeling related to use of Oxycodone. States pain is currently 5/10 but declines pain medication I just need to take a break for awhile. Original Note: Patient seen and assessed at 2350. Is alert and oriented. Breath sounds CTA with RA sat of 94%. HRR. Denies nausea. BT present and is passing flatus and had liquids stool on day shift. Still having abdominal cramping rating severity as 6/10 so medicated with Oxycodone. Abdomen is soft, distended and tender; left > right. Is voiding per urinal; denies dysuria, frequency or urgency. Is able to turn himself. Midline incision is steristripped and DAVID; well approximated and without redness or drainage. Does have a small area of erythema to left of incision. Wearing bilateral calf SCD's. Fall risk score is low. Continues of TPN and is also receiving lipids tonight.
[2020-03-01 04:45] VITALS: BP 120/72; PULSE 76; RESP 16; TEMP 37.1; O2SAT 96
[2020-03-01 06:17] LABS: Add Manual Diff / Slide Review NO; Basophils Absolute Auto 0 /uL (0-100); Basophils Percent Auto 0.4 % (0-2); Eosinophils Absolute Auto 200 /uL (0-450); Eosinophils Percent Auto 1.8 % (2-4); Hematocrit 38.2 % (41-53); Lymphocytes Absolute Auto 1500 /uL (1100-4500); Lymphocytes Percent Auto 12.8 % (25-40); Mean Corpuscular HGB Conc 33.9 % (30-36); Mean Corpuscular Hemoglobin 28.6 PG (26-34); Mean Corpuscular Volume 84.3 fL (80-100); Monocytes Absolute Auto 1100 /uL (0-900); Monocytes Percent Auto 9.5 % (3-14); Neutrophils Absolute Auto 8900 /uL (1500-7000); Neutrophils Percent Auto 75.5 % (50-75); Platelet Count 325 X10^3/uL (150-400); Red Blood Cell Count 4.54 X10^6/uL (4.5-5.9); Red Cell Distribution Width 13.3 % (11.6-14.8); White Blood Cell Count 11.8 X10^3/uL (4.5-11.0)
[2020-03-01 06:25] LABS: BUN Creatinine Ratio 15.5 (6-22); Blood Urea Nitrogen 15 mg/dL (9-20); Calcium 8.6 mg/dL (8.4-10.2); Carbon Dioxide 27 mmol/L (22-32); Chloride 101 mmol/L (98-107); Estimated Glomerular Filt Rate > 60.0 mL/min (>60); Glucose 117 mg/dL (70-100); HEMOLYSIS < 15 (0-50); Magnesium 2.2 mg/dL (1.6-2.3); Phosphorous 3.9 mg/dL (2.5-4.5); Potassium 3.9 mmol/L (3.4-5.1); Sodium 135 mmol/L (137-145)
[2020-03-01 07:55] VITALS: BP 145/78; PULSE 68; RESP 22; TEMP 36.9; O2SAT 96
[2020-03-01] MEDS: HYDROMORPHONE 0.5 MG INJ 1 MG IV ×3 (07:56→21:03)
[2020-03-01] MEDS: ENOXAPARIN 40 MG/0.4 ML SYRINGE SUBCUT (07:57)
[2020-03-01] MEDS: SODIUM CHLORIDE 0.9% FLUSH 10 ML IV ×3 (07:57→18:45)
[2020-03-01] MEDS: OXYCODONE IR 5 MG TABLET PO (12:35)
[2020-03-01 12:45] VITALS: BP 130/82; PULSE 77; RESP 23; TEMP 37.1; O2SAT 97
--- NOTE | 2020-03-01 13:58 | PC.NURSE ---
Day Shift- Pt states 5-6/10 abd aching and pressure, cramping across abd. IV Dilaudid prn given at 0800 with good effect. Pt [id number]% of applesauce cup and 1/3 of cream of wheat for breakfast. At lunch time pt stated he had 2 small and 1 large loose BM, abd cramping persistent. PRN Oxycodone 2.5mg given with good effect. For lunch pt had 1 bite of mac and cheese and 1 bite of mashed potatoes, states not feeling hungry. Ensure surgery drinks encouraged, pt still drinking qs amounts of water. Also had another small to moderate loose BM. Belching, no increase in abd bloating, mild nausea. Encouraged ambulation. Pt walking indep in room with steady gait. TPN infusion weaned this AM, PICC double lumen heparin locked per protocol, both flush well with brisk blood return.
--- NOTE | 2020-03-01 15:02 | PM.PN.1 ---
Subjective Subjective Date Patient Seen: 03/01/20 Time Patient Seen: 15:02 Interval history: No acute events overnight. Pt tolerating PO. Passing gas and liquid stool. Says he feels very bloated and his stools are uncontrolled. He feels the pain med is too strong and would like 1/2 tab tonight. Exam Vital Signs (past 8 hours): - 03/01/20 07:55 03/01/20 12:45 Temperature 98.4 F 98.7 F Pulse Rate 68 77 Respiratory Rate 22 23 Blood Pressure 145/78 H 130/82 Pulse Oximetry 96 97 Oxygen Delivery Method Room Air Oxygen Flow Rate 0 Narrative Exam Narrative: GENERAL: Alert, comfortable. Appears stated age. Answers questions promptly and appropriately. Vital signs noted. HENT: Normocephalic, atraumatic. Hearing intact. EYES: Conjunctiva pink, sclera white, no periorbital swelling. CARDIOVASCULAR: Regular rate. No pedal edema. RESPIRATORY: Non-tachypneic, breathing comfortably on room air. GASTROINTESTINAL: Abdomen soft, distended, incision clean dry and intact without erythema or drainage MUSCULOSKELETAL: Equal tone and mass bilaterally. SKIN: Warm, dry, soft, appropriate color for ethnicity. No other lesions, rashes, or wounds. NEURO: Alert and Oriented X 3. No gross sensory deficits, or cognitive issues. PSYCH: Appropriate affect and mood. Objective Labs Result Diagrams: 03/01/20 05:40 03/01/20 05:40 Labs: Laboratory Results - last 24 hr 03/01/20 03/01/20 05:40 05:40 WBC 11.8 H RBC 4.54 Hgb 13.0 L Hct 38.2 L MCV 84.3 MCH 28.6 MCHC 33.9 RDW 13.3 Plt Count 325 Neut % (Auto) 75.5 H Lymph % (Auto) 12.8 L [place] % (Auto) 9.5 Eos % (Auto) 1.8 L Baso % (Auto) 0.4 Neut # (Auto) 8900 H Lymph # (Auto) 1500 [place] # (Auto) 1100 H Eos # (Auto) 200 Baso # (Auto) 0 Sodium 135 L Potassium 3.9 Chloride 101 Carbon Dioxide 27 BUN 15 Creatinine 0.97 Estimated GFR > 60.0 BUN/Creatinine Ratio 15.5 Glucose 117 H Calcium 8.6 Phosphorus 3.9 Magnesium 2.2 Assessment & Plan Assessment and plan (1) SBO (small bowel obstruction): Status: Acute Assessment & Plan narrative: 54-year-old man postoperative day 4 after an exploratory laparotomy small bowel resection lysis of adhesions for small-bowel obstruction. He is passing gas and liquid stool, and eating a little bit. His pain is relatively well controlled. DVT prophylaxis Advanced diet as tolerated Ambulate frequently Labs daily Dispo pending tolerates a diet, manageable stool output, and pain well controlled COVID-19 COVID-19 status: Negative Result date/Date tested (Pos, Neg/Pending): 02/24/20 Time Spent With Patient Time with patient: 15-24 minutes Quality VTE Deep Vein Thrombosis/Pulmonary Embolism Present on Admission: No
[2020-03-01 15:42] VITALS: BP 132/80; PULSE 74; RESP 18; TEMP 36.4; O2SAT 98
[2020-03-01 20:05] VITALS: BP 127/80; PULSE 72; RESP 19; TEMP 37.2; O2SAT 98
[2020-03-02] VITALS (7 sets, daily range): BP systolic 111–140; BP diastolic 72–78; PULSE 64–79; RESP 14–17; TEMP 36.1–37.3; O2SAT 96–98
[2020-03-02] MEDS: HYDROMORPHONE 0.5 MG INJ 1 MG IV ×5 (02:03→21:32)
[2020-03-02] MEDS: SODIUM CHLORIDE 0.9% FLUSH 10 ML IV ×5 (02:03→21:33)
[2020-03-02] MEDS: ONDANSETRON 4 MG/2 ML INJ IV (02:11)
--- NOTE | 2020-03-02 04:21 | PC.NURSE ---
Pt. sleeping now after medicated with 1 mg. Dilaudid IVP @ 0203. Also C/O nausea earlier @ 0211 medicated with 4 mg. of Zofran IVP. Will cont. POC & monitor.
[2020-03-02 05:48] LABS: Add Manual Diff / Slide Review NO; Basophils Absolute Auto 0 /uL (0-100); Basophils Percent Auto 0.2 % (0-2); Eosinophils Absolute Auto 200 /uL (0-450); Hematocrit 39.2 % (41-53); Hemoglobin 13.4 g/dL (13.5-17.5); Lymphocytes Absolute Auto 900 /uL (1100-4500); Lymphocytes Percent Auto 6.6 % (25-40); Mean Corpuscular HGB Conc 34.2 % (30-36); Mean Corpuscular Hemoglobin 28.5 PG (26-34); Mean Corpuscular Volume 83.5 fL (80-100); Monocytes Absolute Auto 1000 /uL (0-900); Monocytes Percent Auto 7.3 % (3-14); Neutrophils Absolute Auto 12200 /uL (1500-7000); Neutrophils Percent Auto 84.9 % (50-75); Platelet Count 358 X10^3/uL (150-400); Red Cell Distribution Width 12.8 % (11.6-14.8); White Blood Cell Count 14.4 X10^3/uL (4.5-11.0)
[2020-03-02 06:11] LABS: BUN Creatinine Ratio 19.1 (6-22); Blood Urea Nitrogen 18 mg/dL (9-20); Carbon Dioxide 30 mmol/L (22-32); Chloride 97 mmol/L (98-107); Estimated Glomerular Filt Rate > 60.0 mL/min (>60); Glucose 101 mg/dL (70-100); HEMOLYSIS < 15 (0-50); Magnesium 2.2 mg/dL (1.6-2.3); Phosphorous 4.5 mg/dL (2.5-4.5); Potassium 4.3 mmol/L (3.4-5.1); Sodium 134 mmol/L (137-145)
--- NOTE | 2020-03-02 07:55 | DI.RAD.S_ITS ---
PROCEDURE: XR CHEST 1V INDICATIONS: increasing WBC, infiltrate seen on prior CXR TECHNIQUE: One view of the chest was acquired. COMPARISON: [facility], CR, XR CHEST 1V, 02/24/2020, 15:40. [facility], CR, XR CHEST 1V, 02/27/2020, 20:19. [facility], CR, XR CHEST 1V, 02/27/2020, 22:49. FINDINGS: Surgical changes and devices: The tip of the right-sided PICC line has shifted, and is now seen overlying the medial right brachial cephalic vein. Lungs and pleura: Lungs are clear. No pleural effusions or pneumothorax. Mediastinum: Mediastinal contours appear normal. Heart size is normal. Bones and chest wall: No suspicious bony lesions. Age-appropriate bony degenerative changes are seen. Overlying soft tissues appear unremarkable. IMPRESSION: The right-sided PICC line has been partially withdrawn, with the tip now seen overlying medial right brachiocephalic vein. No demond, focal infiltrates are seen on this portable chest study. Dictated by: Vernon Brennan M.D. on 03/02/2020 at 8:46 Approved by: Vernon Brennan M.D. on 03/02/2020 at 8:49
[2020-03-02] MEDS: IBUPROFEN 600 MG TABLET PO (08:51)
[2020-03-02] MEDS: ENOXAPARIN 40 MG/0.4 ML SYRINGE SUBCUT (08:51)
--- NOTE | 2020-03-02 09:03 | DI.RAD.S_ITS ---
PROCEDURE: XR ABDOMEN 1V INDICATIONS: nausea, resolving ileus; eval dilated bowel/stomach TECHNIQUE: One view of the abdomen acquired. COMPARISON: [facility], CT, CT ABDOMEN PELVIS W CON, 02/24/2020, 13:15. [facility], CR, XR CHEST 1V, 03/02/2020, 9:06. [facility], [place], [place] SMALL BOWEL FOLLOW THROUGH, 02/24/2020, 18:26. FINDINGS: Surgical changes and devices: None. Bowel: Prominently dilated loops of gas-filled small bowel are seen, which measure up to 5.7 cm. On this supine study, air-fluid levels are not assessed. Soft tissues: No suspicious abdominal calcifications. Visualized solid organ contours appear normal in size. Bones: No suspicious bony lesions. IMPRESSION: Prominently dilated loops of gas-filled small bowel are again seen. Small bowel obstruction is suspected, although differential diagnosis includes advanced ileus. If it would be helpful for clinical management decision making, please consider a dedicated CT study for further evaluation. Dictated by: Vernon Brennan M.D. on 03/02/2020 at 8:49 Approved by: Vernon Brennan M.D. on 03/02/2020 at 8:51
[2020-03-02 09:28] LABS: Appearance Urine UA CLEAR; Bilirubin Urine UA NEGATIVE (NEGATIVE); Color Urine UA YELLOW; Glucose Urine UA NEGATIVE (Negative); Ketones Urine UA NEGATIVE (NEGATIVE); Leukocyte Esterase Urine UA NEGATIVE (NEGATIVE); Nitrite Urine UA NEGATIVE (Negative); Occult Blood Urine UA TRACE-LYSED (Negative); Protein Urine UA NEGATIVE (Negative); Urobilinogen Urine UA 0.2 E.U./dL (0.2)
[2020-03-02] MEDS: PANTOPRAZOLE 40 MG VIAL IV ×2 (09:29→21:32)
[2020-03-02] MEDS: SODIUM CHLORIDE 0.9% 1,000 ML 125 ML IV ×2 (09:29→17:06)
[2020-03-02] MEDS: METOCLOPRAMIDE 10 MG/2 ML INJ IV ×2 (09:29→17:06)
[2020-03-02] MEDS: KETOROLAC 15 MG/ML VIAL IV ×3 (09:29→23:51)
--- NOTE | 2020-03-02 10:15 | PC.NURSE ---
0900: CALLED DR. REY R/T PATIENT C/O CONSTANT NAUSEA WITH ACID REFLUX, SQUIRMING IN BED WITH DISCOMFORT. TOOK ONLY BITES OF FRUIT FOR BREAKFAST, UNABLE TO TOLERATE ANYTHING ELSE. APPEARS VERY UNCOMFORTABLE. ORDER FOR PROTONIX, REGLAN, IVF, DOWNGRADE TO CLEAR LIQUID DIET, ADDED ABD XRAY. STATES SHE WILL SEE PATIENT SOON. JUST AFTER ORDERS OBTAINED PATIENT HAD GREEN BILE EMESIS IN SINK THAT FILLED THE ENTIRE SINK. ESTIMATED 2000 CC'S BUT REALLY PROBABLY MORE THAN THAT. PATIENT STATED DID FEEL SOMEWHAT BETTER AFTER THAT, PAIN IN ABD DOWN TO 4/10 FROM 12/26. UA SENT TO LAB, XRAY CAME TO TAKE PATIENT. ONCE PATIENT BACK TO ROOM, MEDS GIVEN AND PICC LINE DRSG CHANGED WAS STARTING TO ROLL OFF. REPORTED ALL THE ABOVE TO PATIENT'S PRIMARY NURSE SHABBIR.
--- NOTE | 2020-03-02 11:36 | PM.PN.1 ---
Subjective Subjective Date Patient Seen: 03/02/20 Time Patient Seen: 11:36 Interval history: Pt c/o heartburn, nausea, and bloating. Did not pass any gas or stool yesterday. Has started to feel some rumbling in his abdomen since getting a dose of reglan. Exam Vital Signs (past 8 hours): - 03/02/20 04:00 03/02/20 08:00 Temperature 98.0 F 96.9 F L Pulse Rate 64 79 Respiratory Rate 16 14 Blood Pressure 129/78 111/75 Pulse Oximetry 97 96 Oxygen Delivery Method Room Air Oxygen Flow Rate 0 Narrative Exam Narrative: GENERAL: Alert, comfortable. Appears stated age. Answers questions promptly and appropriately. Vital signs noted. HENT: Normocephalic, atraumatic. Hearing intact. EYES: Conjunctiva pink, sclera white, no periorbital swelling. CARDIOVASCULAR: Regular rate. No pedal edema. RESPIRATORY: Non-tachypneic, breathing comfortably on room air. GASTROINTESTINAL: Abdomen soft, distended, incision clean dry and intact without erythema or drainage MUSCULOSKELETAL: Equal tone and mass bilaterally. SKIN: Warm, dry, soft, appropriate color for ethnicity. No other lesions, rashes, or wounds. NEURO: Alert and Oriented X 3. No gross sensory deficits, or cognitive issues. PSYCH: Appropriate affect and mood. Objective Imaging Abdominal x-ray: My impression: dilated bowel, ileus Radiologist's impression: [address] [address] XRay Report Signed Patient: Augusto Harvey [facility]#: [id number] : 1965Acct:[id number] Age/Sex: 54 / MDate of Service: 03/02/20 Loc: YG002-1 Accession Number: [id number] Procedure: XR abdomen 1V Ordering Provider: Jaycee Walter MD PROCEDURE: XR ABDOMEN 1V INDICATIONS: nausea, resolving ileus; eval dilated bowel/stomach TECHNIQUE: One view of the abdomen acquired. COMPARISON: [facility], CT, CT ABDOMEN PELVIS W CON, 02/24/2020, 13:15. [facility], CR, XR CHEST 1V, 03/02/2020, 9:06. [facility], [place], [place] SMALL BOWEL FOLLOW THROUGH, 02/24/2020, 18:26. FINDINGS: Surgical changes and devices: None. Bowel: Prominently dilated loops of gas-filled small bowel are seen, which measure up to 5.7 cm. On this supine study, air-fluid levels are not assessed. Soft tissues: No suspicious abdominal calcifications. Visualized solid organ contours appear normal in size. Bones: No suspicious bony lesions. IMPRESSION: Prominently dilated loops of gas-filled small bowel are again seen. Small bowel obstruction is suspected, although differential diagnosis includes advanced ileus. If it would be helpful for clinical management decision making, please consider a dedicated CT study for further evaluation. Dictated by: Vernon Brennan M.D. on 03/02/2020 at 8:49 Approved by: Vernon Brennan M.D. on 03/02/2020 at 8:51 Labs Result Diagrams: 03/02/20 05:20 03/02/20 05:20 Labs: Laboratory Results - last 24 hr 03/02/20 03/02/20 03/02/20 05:20 05:20 09:06 WBC 14.4 H RBC 4.70 Hgb 13.4 L Hct 39.2 L MCV 83.5 MCH 28.5 MCHC 34.2 RDW 12.8 Plt Count 358 Neut % (Auto) 84.9 H Lymph % (Auto) 6.6 L [place] % (Auto) 7.3 Eos % (Auto) 1.0 L Baso % (Auto) 0.2 Neut # (Auto) 26769 H Lymph # (Auto) 900 L [place] # (Auto) 1000 H Eos # (Auto) 200 Baso # (Auto) 0 Sodium 134 L Potassium 4.3 Chloride 97 L Carbon Dioxide 30 BUN 18 Creatinine 0.94 Estimated GFR > 60.0 BUN/Creatinine Ratio 19.1 Glucose 101 H Calcium 9.0 Phosphorus 4.5 Magnesium 2.2 Urine Color Yellow Urine Appearance Clear Urine pH 6.0 Ur Specific [place] 1.020 Urine Protein Negative Urine Glucose (UA) Negative Urine Ketones Negative Urine Occult Blood Trace-lysed Urine Nitrate Negative Urine Bilirubin Negative Urine Urobilinogen 0.2 Ur Leukocyte Esterase Negative Assessment & Plan Assessment and plan (1) SBO (small bowel obstruction): Status: Acute Assessment & Plan narrative: 54-year-old man postoperative day 5 after an exploratory laparotomy small bowel resection lysis of adhesions for small-bowel obstruction. He is feeling more distended, having heartburn, reflux and nausea. He has not passed any gas or stool since day before yesterday. His xray looks like he has a significant ileus. We have switched him back to clears, IV fluids, reglan. Will place NGT if needed. DVT prophylaxis clear liquid diet Ambulate frequently Labs daily IV fluids reglan COVID-19 COVID-19 status: Negative Result date/Date tested (Pos, Neg/Pending): 02/24/20 Time Spent With Patient Time with patient: 15-24 minutes Quality VTE Deep Vein Thrombosis/Pulmonary Embolism Present on Admission: No
--- NOTE | 2020-03-02 11:44 | PC.NURSE ---
Addendum entered by Jesusita Estes R.N. 03/02/20 14:31: Patient saline locked for a shower. Patient c/o pain once shower was over. Requests only 0.5mg Dilaudid. Administered, PICC line flushed. Will continue to monitor pain. Original Note: Late note: 729, patient reporting feelings of discomfort- constipation reflux and bloating. Up to bathroom in attempts to alleviate discomfort. Patient feeling nausea. Patient had large emesis per Rin AMADOR MD in to see patient, medications administered-see MAR. Patient reports he is feeling much better at this time. No flatus, but bowel tones active x4. Reports no nausea, no reflux. PICC line CDI, infusing NS at 125. Patient reports pain is diminished. Ambulating independently in the room. No dizziness, SOB, or chest pain. Lungs clear throughout, RA. Patient voiding using urinal.
[2020-03-03] VITALS (7 sets, daily range): BP systolic 120–145; BP diastolic 61–85; PULSE 61–99; RESP 15–16; TEMP 36.4–37.7; O2SAT 94–99
[2020-03-03] MEDS: METOCLOPRAMIDE 10 MG/2 ML INJ IV ×3 (01:03→16:26)
[2020-03-03] MEDS: SODIUM CHLORIDE 0.9% 1,000 ML 125 ML IV ×3 (01:07→16:26)
[2020-03-03 06:30] LABS: Add Manual Diff / Slide Review NO; Basophils Absolute Auto 0 /uL (0-100); Basophils Percent Auto 0.2 % (0-2); Eosinophils Absolute Auto 200 /uL (0-450); Eosinophils Percent Auto 1.4 % (2-4); Hematocrit 37.1 % (41-53); Hemoglobin 12.5 g/dL (13.5-17.5); Lymphocytes Absolute Auto 600 /uL (1100-4500); Lymphocytes Percent Auto 4.2 % (25-40); Mean Corpuscular HGB Conc 33.8 % (30-36); Mean Corpuscular Hemoglobin 28.2 PG (26-34); Mean Corpuscular Volume 83.6 fL (80-100); Monocytes Absolute Auto 900 /uL (0-900); Monocytes Percent Auto 6.2 % (3-14); Neutrophils Absolute Auto 12200 /uL (1500-7000); Platelet Count 305 X10^3/uL (150-400); Red Blood Cell Count 4.43 X10^6/uL (4.5-5.9); White Blood Cell Count 13.8 X10^3/uL (4.5-11.0)
[2020-03-03] MEDS: SODIUM CHLORIDE 0.9% FLUSH 10 ML IV ×3 (06:31→19:24)
[2020-03-03 06:43] LABS: BUN Creatinine Ratio 19.6 (6-22); Blood Urea Nitrogen 19 mg/dL (9-20); Calcium 8.3 mg/dL (8.4-10.2); Carbon Dioxide 27 mmol/L (22-32); Chloride 102 mmol/L (98-107); Estimated Glomerular Filt Rate > 60.0 mL/min (>60); Glucose 90 mg/dL (70-100); HEMOLYSIS 15 (0-50); Phosphorous 3.3 mg/dL (2.5-4.5); Potassium 4.3 mmol/L (3.4-5.1); Sodium 134 mmol/L (137-145)
[2020-03-03] MEDS: HYDROMORPHONE 0.5 MG INJ 1 MG IV ×4 (08:15→23:12)
[2020-03-03] MEDS: KETOROLAC 15 MG/ML VIAL IV ×2 (09:37→16:26)
[2020-03-03] MEDS: ENOXAPARIN 40 MG/0.4 ML SYRINGE SUBCUT (09:37)
[2020-03-03] MEDS: PANTOPRAZOLE 40 MG VIAL IV ×2 (09:37→19:24)
--- NOTE | 2020-03-03 10:16 | PM.PN.1 ---
Subjective Subjective Date Patient Seen: 03/03/20 Time Patient Seen: 14:10 Interval history: Patient said he had some crampy abdominal pain last night. He began passing gas, and is still passing gas now. He says he has started to feel more normal. He still feels a bit nauseated and bloated. Exam Vital Signs (past 8 hours): - 03/03/20 05:48 03/03/20 08:26 Temperature 98.7 F 97.6 F Pulse Rate 66 62 Respiratory Rate 16 15 Blood Pressure 132/74 145/85 H Pulse Oximetry 96 99 Oxygen Delivery Method Room Air Oxygen Flow Rate 0 Narrative Exam Narrative: GENERAL: Alert, comfortable. Appears stated age. Answers questions promptly and appropriately. Vital signs noted. HENT: Normocephalic, atraumatic. Hearing intact. EYES: Conjunctiva pink, sclera white, no periorbital swelling. CARDIOVASCULAR: Regular rate. No pedal edema. RESPIRATORY: Non-tachypneic, breathing comfortably on room air. GASTROINTESTINAL: Abdomen soft, distended, incision clean dry and intact without erythema or drainage MUSCULOSKELETAL: Equal tone and mass bilaterally. SKIN: Warm, dry, soft, appropriate color for ethnicity. No other lesions, rashes, or wounds. NEURO: Alert and Oriented X 3. No gross sensory deficits, or cognitive issues. PSYCH: Appropriate affect and mood. Objective Labs Result Diagrams: 03/03/20 06:15 03/03/20 06:15 Labs: Laboratory Results - last 24 hr 03/03/20 03/03/20 06:15 06:15 WBC 13.8 H RBC 4.43 L Hgb 12.5 L Hct 37.1 L MCV 83.6 MCH 28.2 MCHC 33.8 RDW 13.0 Plt Count 305 Neut % (Auto) 88.0 H Lymph % (Auto) 4.2 L [place] % (Auto) 6.2 Eos % (Auto) 1.4 L Baso % (Auto) 0.2 Neut # (Auto) 13843 H Lymph # (Auto) 600 L [place] # (Auto) 900 Eos # (Auto) 200 Baso # (Auto) 0 Sodium 134 L Potassium 4.3 Chloride 102 Carbon Dioxide 27 BUN 19 Creatinine 0.97 Estimated GFR > 60.0 BUN/Creatinine Ratio 19.6 Glucose 90 Calcium 8.3 L Phosphorus 3.3 D Magnesium 2.0 Assessment & Plan Assessment and plan (1) SBO (small bowel obstruction): Status: Acute Assessment & Plan narrative: 54-year-old man postoperative day 6 after an exploratory laparotomy small bowel resection lysis of adhesions for small-bowel obstruction. He began having ileus symptoms again with vomiting yesterday morning, after initial return of bowel function on the days prior. I put him back to clears yesterday, and started some Reglan. Overnight he had some crampy abdominal pain, and now he is starting to pass gas again and feels a bit better. I suggested that we just keep him on clears for today, and wait till he continues to pass gas and passes some stool prior to advancing him any further. He is in agreement with this plan. DVT prophylaxis clear liquid diet Ambulate frequently Labs daily IV fluids reglan COVID-19 COVID-19 status: Negative Result date/Date tested (Pos, Neg/Pending): 02/24/20 Time Spent With Patient Time with patient: 15-24 minutes Quality VTE Deep Vein Thrombosis/Pulmonary Embolism Present on Admission: No
[2020-03-03] MEDS: ONDANSETRON 4 MG/2 ML INJ IV (15:13)
--- NOTE | 2020-03-03 17:35 | PC.NURSE ---
Addendum entered by Liya Molina R.N. 03/03/20 20:15: Patient ambulated around room. Reports passing more flatus tonight. Addendum entered by Liya Molina R.N. 03/03/20 19:54: After Dilaudid given patient said he was able to sleep for 2 hours. Reports nausea is in the background, denies pain. When asked if he had passed flatus recently he said I don't know I was asleep. Afebrile and other VS stable. Pt declined to ambulate, teaching explained about ambulation/bowels/flatus, encouraged him to ambulate when the nausea and pain are controlled. Fresh ice water given, denies other needs at this time. Original Note: Evening notes: Augusto had some chills and temp of 99.0, other VS stable. Denied nausea until now, when reported nausea & increasing pain 7/10 to abdomen, saying it feels like my stomach is in a vice. Dilaudid 1 mg given. Too early to give Zofran, will reassess pain/nausea soon. Denies other needs, refused clear liquid meal. Refused to ambulate at this time, saying I feel like I sat up and walked a lot earlier, requesting rest period until pain/nausea under control. Instructed him to call nurse if he has continued pain/nausea, not relieved by IV Dilaudid; he agrees to this plan.
[2020-03-04] VITALS (7 sets, daily range): BP systolic 109–129; BP diastolic 58–71; PULSE 60–73; RESP 15–18; TEMP 36.2–38.1; O2SAT 92–99
[2020-03-04] MEDS: SODIUM CHLORIDE 0.9% 1,000 ML 125 ML IV
[2020-03-04] MEDS: METOCLOPRAMIDE 10 MG/2 ML INJ IV ×3 (00:50→16:58)
--- NOTE | 2020-03-04 01:06 | PC.NURSE ---
Addendum entered by Larisa Ortiz R.N. 03/04/20 03:42: Complains of 6/10 cramping abdominal pain; medicated with 0.5mg of IV Dilaudid per patient request. Original Note: Patient is alert and oriented. Breath sounds CTA with RA sat of 92%. HRR. Complains of slight nausea but declines antiemetic. Abdomen less distended than last week. BT present in all quads and is passing flatus but no stool since 03/01. Voiding per urinal; denies dysuria, frequency or urgency. 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 Did have temp of 100.5 reported earlier by [employer] but on recheck is now 99.2. Able to turn self in bed and is out of bed independently. Was medicated at shift change with IV Dilaudid for cramping pains in abdomen and now states he is comfortable at 4/10 severity. Fall risk score is low.
[2020-03-04] MEDS: HYDROMORPHONE 0.5 MG INJ 1 MG IV ×3 (03:32→22:20)
[2020-03-04 06:57] LABS: Add Manual Diff / Slide Review NO; Basophils Absolute Auto 100 /uL (0-100); Basophils Percent Auto 0.6 % (0-2); Eosinophils Absolute Auto 100 /uL (0-450); Eosinophils Percent Auto 0.7 % (2-4); Hematocrit 35.6 % (41-53); Hemoglobin 12.2 g/dL (13.5-17.5); Lymphocytes Absolute Auto 800 /uL (1100-4500); Lymphocytes Percent Auto 3.9 % (25-40); Mean Corpuscular HGB Conc 34.4 % (30-36); Mean Corpuscular Hemoglobin 28.7 PG (26-34); Mean Corpuscular Volume 83.5 fL (80-100); Monocytes Absolute Auto 900 /uL (0-900); Monocytes Percent Auto 4.7 % (3-14); Neutrophils Absolute Auto 17700 /uL (1500-7000); Neutrophils Percent Auto 90.1 % (50-75); Platelet Count 286 X10^3/uL (150-400); Red Blood Cell Count 4.26 X10^6/uL (4.5-5.9); Red Cell Distribution Width 12.9 % (11.6-14.8); White Blood Cell Count 19.7 X10^3/uL (4.5-11.0)
[2020-03-04 07:06] LABS: BUN Creatinine Ratio 18.3 (6-22); Blood Urea Nitrogen 20 mg/dL (9-20); Calcium 7.7 mg/dL (8.4-10.2); Carbon Dioxide 24 mmol/L (22-32); Chloride 103 mmol/L (98-107); Estimated Glomerular Filt Rate > 60.0 mL/min (>60); Glucose 87 mg/dL (70-100); HEMOLYSIS < 15 (0-50); Magnesium 1.9 mg/dL (1.6-2.3); Potassium 4.1 mmol/L (3.4-5.1); Sodium 133 mmol/L (137-145)
[2020-03-04] MEDS: PANTOPRAZOLE 40 MG VIAL IV ×2 (07:50→20:13)
[2020-03-04] MEDS: ONDANSETRON 4 MG/2 ML INJ IV (07:51)
[2020-03-04] MEDS: KETOROLAC 15 MG/ML VIAL IV ×2 (07:51→16:57)
[2020-03-04] MEDS: SODIUM CHLORIDE 0.9% FLUSH 10 ML IV (08:00)
--- NOTE | 2020-03-04 08:59 | DI.CT.S_ITS ---
PROCEDURE: CT ABDOMEN PELVIS W CON INDICATIONS: leukocytosis after small bowel resection for SBO TECHNIQUE: After the administration of oral and intravenous contrast, 5 mm thick sections acquired from the diaphragms to the symphysis. 5 mm thick coronal and sagittal reformats were performed. For radiation dose reduction, the following was used: automated exposure control, adjustment of mA and/or kV according to patient size. COMPARISON: [facility], CR, XR ABDOMEN 1V, 03/02/2020, 9:06. [facility], CT, CT ABDOMEN PELVIS W CON, 02/24/2020, 13:15. FINDINGS: Image quality: Excellent. ABDOMEN: Lung bases: Lung bases are clear. Heart size is normal. Solid organs: Liver is normal in size and enhancement. Gallbladder appears free of inflammation or calculus . Biliary system is non-dilated. Pancreas enhances normally. Spleen is normal in size and enhancement. No adrenal nodules. Kidneys are normal in size and enhancement, without hydronephrosis. Peritoneum and bowel: Stomach and small bowel loops appear moderately fluid distended, and Oral contrast within the stomach has also transit to approximately the junction of the proximal and middle thirds of the small bowel. A mechanical obstruction is not seen, postoperative ileus is suspected by appearance. Surgical clips are seen at the right lower quadrant with an enteric staple line suggestive of enterocolonic anastomosis. No evidence of abscess formation in this area. Colon loops are normal in caliber and wall thickness. No free fluid or air. Nodes and vessels: No retroperitoneal or mesenteric adenopathy. Aorta and inferior vena cava are normal in caliber. Miscellaneous: No ventral hernias. PELVIS: Genitourinary: Bladder wall thickness is normal. Miscellaneous: No inguinal hernias or adenopathy. Postsurgical change right lower quadrant as discussed above, no operative complication found. Bones: No suspicious bony lesions. No vertebral body compression fractures. IMPRESSION: Small bowel dilatation, gastric mild dilatation also, relatively slow transit of oral contrast from the stomach into the small bowel. Postoperative ileus is the likely cause. Right lower quadrant postoperative changes as discussed above without evidence of operative complication or right lower quadrant postoperative abscess formation. Dictated by: Babak Ha M.D. on 03/04/2020 at 9:10 Approved by: Babak Ha M.D. on 03/04/2020 at 9:17
[2020-03-04] MEDS: ENOXAPARIN 40 MG/0.4 ML SYRINGE SUBCUT (09:47)
[2020-03-04] MEDS: SODIUM CHLORIDE 0.9% 1,000 ML 1000 ML IV (11:30)
--- NOTE | 2020-03-04 12:26 | PM.PNPO.1 ---
Subjective Subjective Date Patient Seen: 03/04/20 Time Patient Seen: 12:26 Interval history: Had nausea and vomiting of course of the weekend. Associated with a increase in his leukocytosis to 19 today this morning. Chest x-ray UA were negative. CT abdomen pelvis demonstrates ileus no intra-abdominal abscess or of fluid. After the CT scan he had several bowel movements feels much less distended and hungry Exam Vital Signs (past 8 hours): - 03/04/20 09:20 Temperature 97.2 F L Pulse Rate 65 Respiratory Rate 18 Blood Pressure 113/67 Pulse Oximetry 95 Oxygen Delivery Method Room Air Oxygen Flow Rate 0 Narrative Exam Narrative: General adult male alert oriented no acute distress Abdomen mildly distended midline incision clean dry intact. Appropriately tender to palpation Objective Labs Result Diagrams: 03/04/20 06:45 03/04/20 06:45 Labs: Laboratory Results - last 24 hr 03/04/20 03/04/20 06:45 06:45 WBC 19.7 H RBC 4.26 L Hgb 12.2 L Hct 35.6 L MCV 83.5 MCH 28.7 MCHC 34.4 RDW 12.9 Plt Count 286 Neut % (Auto) 90.1 H Lymph % (Auto) 3.9 L [place] % (Auto) 4.7 Eos % (Auto) 0.7 L Baso % (Auto) 0.6 Neut # (Auto) 15343 H Lymph # (Auto) 800 L [place] # (Auto) 900 Eos # (Auto) 100 Baso # (Auto) 100 Sodium 133 L Potassium 4.1 Chloride 103 Carbon Dioxide 24 BUN 20 Creatinine 1.09 Estimated GFR > 60.0 BUN/Creatinine Ratio 18.3 Glucose 87 Calcium 7.7 L Magnesium 1.9 Assessment & Plan Post-op Postoperative Procedures: Procedures Operation Date: 02/26/20 12:30 Actual Procedures Side Surgeon p Exploratory Laparotomy GEN with lysis of adhesions and small bowel resection Pancho Blake MD Postoperative status narrative: 54-year-old male postoperative day 7 after an exploratory laparotomy lysis of adhesions and small-bowel resection for a small-bowel obstruction. He is making a gradual recovery. Postoperative ileus is resolving, prep I reviewed his CT abdomen pelvis from today which demonstrates some mild bleed distended loops of small bowel no intra-abdominal abscess or free fluid. Advance diet as tolerated. Leukocytosis of unclear source. Chest x-ray and UA reviewed negative. CT abdomen pelvis reviewed negative for intra-abdominal infection. Perhaps the leukocytosis is secondary to the postoperative ileus associated dehydration will monitor and fluid resuscitate. Lovenox and SCDs for VT prophylaxis Quality VTE Deep Vein Thrombosis/Pulmonary Embolism Present on Admission: No
[2020-03-04] MEDS: SODIUM CHLORIDE 0.9% 1,000 ML 150 ML IV ×2 (13:03→20:08)
--- NOTE | 2020-03-04 14:05 | CM.DPC ---
DCP Cont: Per Surgeon, pt had NG discontinued and diet beginning to be advanced but pt continued to have N/V. CT scan this morning and white count was up but CT negative and other lab results returned without concern and after CT pt has had multiple bowel movements and feeling better. Plan for pt's diet to continue to be advanced and increase mobility. Plan: SW to follow closely tomorrow to determine if pt was able to tolerate advancing diet towards plan of d/c home when medically stable. NEEMA Adkins
--- NOTE | 2020-03-04 18:30 | PC.NURSE ---
Addendum entered by Madhavi Ren R.N. 03/04/20 22:17: Pt med w/dilaudid IVP @ 2225 for discomfort. IVF continue as per orders. Relatively uneventful evening. Call light w/in reach, bed alarm on for pt safety. Continue w/plan of care. Original Note: Pt awake, watching TV. Lungs cleAtr, SpO2 98% RA Abdomen tender, pt requested pain med at 1700. Given Torodal & zofran for nausea w/no relief. Med @ 1730 w/ Diliaudid 1mg IVP w/good relief. IVF of NS @ 150cc/hr infusing into the MELIA PICC w/o incidence. Call light w/in reach, pt call appropriately for needs.
[2020-03-05] MEDS: METOCLOPRAMIDE 10 MG/2 ML INJ IV ×2 (00:50→08:22)
[2020-03-05 00:54] VITALS: BP 120/75; PULSE 62; RESP 18; TEMP 37.2; O2SAT 96
--- NOTE | 2020-03-05 01:08 | PC.NURSE ---
Addendum entered by Larisa Ortiz R.N. 03/05/20 05:24: Slept for several hours. Up to bathroom and had moderate loose BM. States pain improved but still rates as 5/10; requested half dose of pain medication so medicated with 0.5mg IV Dilaudid. Original Note: Patient is alert and oriented. Breath sounds CTA with RA sat of 96%. HRR. Denies nausea. BT present; abdomen still appears mildly distended. Continued cramping type pain but states it is currently tolerable and declines pain medication at this time. Is independent with mobility. IVF infusing via DL PICC. Fall risk score is low.
[2020-03-05] MEDS: SODIUM CHLORIDE 0.9% 1,000 ML 150 ML IV (02:56)
[2020-03-05] MEDS: SODIUM CHLORIDE 0.9% FLUSH 10 ML IV ×3 (05:06→09:53)
[2020-03-05 05:10] VITALS: BP 133/81; PULSE 63; RESP 19; TEMP 36.6; O2SAT 95
[2020-03-05] MEDS: HYDROMORPHONE 0.5 MG INJ 1 MG IV (05:17)
[2020-03-05 05:26] LABS: Add Manual Diff / Slide Review NO; Basophils Absolute Auto 100 /uL (0-100); Basophils Percent Auto 0.6 % (0-2); Eosinophils Absolute Auto 200 /uL (0-450); Eosinophils Percent Auto 1.5 % (2-4); Hematocrit 37.3 % (41-53); Hemoglobin 12.5 g/dL (13.5-17.5); Lymphocytes Absolute Auto 800 /uL (1100-4500); Lymphocytes Percent Auto 6.4 % (25-40); Mean Corpuscular HGB Conc 33.6 % (30-36); Mean Corpuscular Hemoglobin 28.3 PG (26-34); Mean Corpuscular Volume 84.1 fL (80-100); Monocytes Absolute Auto 1100 /uL (0-900); Neutrophils Absolute Auto 10400 /uL (1500-7000); Neutrophils Percent Auto 82.5 % (50-75); Platelet Count 276 X10^3/uL (150-400); Red Blood Cell Count 4.44 X10^6/uL (4.5-5.9); White Blood Cell Count 12.7 X10^3/uL (4.5-11.0)
[2020-03-05 07:28] VITALS: BP 137/77; PULSE 60; RESP 18; TEMP 36.7; O2SAT 96
[2020-03-05] MEDS: ENOXAPARIN 40 MG/0.4 ML SYRINGE SUBCUT (08:23)
[2020-03-05] MEDS: PANTOPRAZOLE 40 MG VIAL IV (08:23)
[2020-03-05 11:22] VITALS: BP 125/75; PULSE 69; RESP 19; TEMP 36.6; O2SAT 96
--- NOTE | 2020-03-05 12:29 | P.DS_ITS ---
History of Present Illness History of Present Illness Chief complaint: Feeling sick/ nausea/ vomitting Narrative: 54-year-old male seen in consultation for a small-bowel obstruction. He has no prior abdominal surgery. He presented with 3 days of worsening abdominal distension and initially some diarrhea. He has had no flatus or bowel movement for the last 2 days and this is associated with nausea and vomiting abdominal discomfort. In the emergency room he underwent a CT scan which demonstrates a small-bowel obstruction with a transition point in the right lower quadrant. At the time of admission he is afebrile white blood cell count 12 the remainder of his labs unremarkable. A nasogastric tube was placed in the ER. He has no relevant medical or surgical history Discharge Providers Provider Date of admission: 02/24/20 15:38 Discharge Date: 03/05/20 Discharge provider: Pancho Blake MD Summary Hospital Course Discharge Diagnosis: Small-bowel obstruction Ischemic small bowel Postoperative ileus Hospital Course: 54-year-old man no prior abdominal surgeries presented with a small-bowel obstruction on CT. A nasogastric tube was placed a small-bowel follow-through was performed which demonstrated no past contrast in the colon. He was taken to the operating room underwent exploratory laparotomy and small- bowel resection lysis of adhesions. An adhesive band was found which was causing ischemia of a portion of the small bowel. Postoperatively he had a prolonged postoperative ileus. He ultimately had return of bowel function. On the date of discharge 03/05 he is feeling well. He is passing stool and flatus he is tolerating a regular diet with resolution of his abdominal pain. Status at Discharge Cognitive/behavioral status at discharge: oriented Functional status at discharge: independent ambulation Exam Vital Signs (past 8 hours): - 03/05/20 05:10 03/05/20 07:28 03/05/20 11:22 Temperature 97.8 F 98.0 F 97.8 F Pulse Rate 63 60 69 Respiratory Rate 19 18 19 Blood Pressure 133/81 137/77 125/75 Pulse Oximetry 95 96 96 Oxygen Delivery Method Room Air Oxygen Flow Rate 0 Narrative Exam Narrative: General adult male alert oriented no acute distress Chest nonlabored respiration Heart regular rate and rhythm Abdomen soft appropriately tender to palpation midline incision clean dry intact. Extremities warm well perfused Objective Labs Result Diagrams: 03/05/20 05:12 03/04/20 06:45 Labs: Laboratory Results - last 24 hr 03/05/20 05:12 WBC 12.7 H RBC 4.44 L Hgb 12.5 L Hct 37.3 L MCV 84.1 MCH 28.3 MCHC 33.6 RDW 13.0 Plt Count 276 Neut % (Auto) 82.5 H Lymph % (Auto) 6.4 L [place] % (Auto) 9.0 Eos % (Auto) 1.5 L Baso % (Auto) 0.6 Neut # (Auto) 65935 H Lymph # (Auto) 800 L [place] # (Auto) 1100 H Eos # (Auto) 200 Baso # (Auto) 100 Discharge Plan Discharge Plan Patient Disposition: Home Discharge orders & Medications Prescriptions: New tramadol 50 mg tablet 50 mg PO Q6H PRN (Reason: pain) Qty: 30 RF: 0 docusate sodium [Colace] 100 mg capsule 100 mg PO BID Qty: 40 RF: 0 Follow up/Referrals: Pancho Blake MD [Physician] - Diet/Activity/Treatments Diet: Regular Activity: No lifting >20 lbs x 6 weeks. Walking only for exercise for 6 weeks[address] while taking narcotics. Skin/Wound/Dressing Care Report to your healthcare provider any signs of infection, such as:: chills, fever, increased pain, unusual drainage and unusual redness Visit Report/Discharge Packet Instructions: [facility]: Wound Care Quality VTE Deep Vein Thrombosis/Pulmonary Embolism Present on Admission: No
--- NOTE | 2020-03-05 12:29 | PC.NURSE ---
Addendum entered by Vivian Mari R.N. 03/05/20 14:32: Pt left unit at 1415 via wheelchair in no distress with [employer] escort. Pt is driving himself home. Addendum entered by Vivian Mari R.N. 03/05/20 14:03: Discharge summary packet reviewed with pt, no further voiced concerns. Pt states he has all his belongings. Prescription ready at [facility]. Pt aware. Pt will be driving himself home, no narcotics since 516. Pt does not have anyone to pick him up and his car is at the hospital. Addendum entered by Vivian Mari R.N. 03/05/20 13:35: PICC line removed without difficulty per hospital policy and procedure. Pt tolerated well. Site cleansed with Central dressing kit. Folded 4X4 gauze and tegaderm dressing applied. No bleeding noted. Script for Tramadol taken to [facility] by RN Coordinator per pt request. Original Note: Day Shift- Spoke with Dr. Blake at 1220 on unit. Pt okay to discharge home and follow up with Dr. Blake in 2 weeks. Verbal order to remove PICC line. Dr. Blake aware of multiple loose BM's this AM. No new orders.
--- NOTE | 2020-03-05 12:37 | CM.DPC ---
DCP: continued: pt now ok'd for d/c to home setting by dr. Blake. Met briefly with him. He is still planning on driving himself home but wants to be there by 3:00 as I know I will need a pain med at that time and I need to be home before I take anything.. KATE Morales is aware and is doing d/c paperwork now. She is sending his new medication order to [facility] on hospital campus so that pt can pick this up on his way out. Pt confirms that he feels ready for the d/c today.
== END 2020-03-05 14:15 | disposition home or self-care (01) | DRG 329 ==
LOC: ED 15:39 → AC 02-25 11:19
PROVIDERS: Emergency Medicine; Surgery; Admitting Provider Surgery; Emergency Provider Nurse Practitioner; Visit Provider Surgery
PROC: 0DB80ZZ Excision of Small Intestine, Open Approach (ICD-10-PCS; CPT 49000; principal; 2020-02-26 12:30)
DX: K56.50 Intestinal adhesions [bands], unspecified as to partial versus complete obstruction (principal); K55.011 Focal (segmental) acute (reversible) ischemia of small intestine; K55.021 Focal (segmental) acute infarction of small intestine; K56.7 Ileus, unspecified; D72.829 Elevated white blood cell count, unspecified; Z87.891 Personal history of nicotine dependence; Z11.59 Encounter for screening for other viral diseases
CPT/HCPCS: 36415; 36592; 44120; 71045; 74018; 74177; 80048; 80053; 81003; 81015; 82550; 82553; 82962; 83690; 83735; 84100; 84484; 85025; 85610; 85730; 87635; 93005; 96361; 96374; 96375; 99222; 99285; B4185; B4189; C9113; J1170; J1642; J1650; J1885; J2250; J2405; J2543; J2704; J2765; J3010; J3480; Q9967